=== PATIENT | male | born 1945 | race Caucasian/White ===

== ENCOUNTER 2020-07-17 10:40 | Inpatient (IN) | payer OTHER, BC ==
[2020-07-17] MEDS ORDERED: ACETAMINOPHEN 1000 MG/100 ML VIAL (NON FORMULARY) IVPB ONE ×2 (11:24→22:37)
[2020-07-17] MEDS ORDERED: LACTATED RINGERS SOLUTION 1000 ML INFUS.BAG IV ONE (11:24)
[2020-07-17] MEDS ORDERED: FAMOTIDINE 20 MG/50 ML IVPB 20 MG/50 ML MG IVPB ONE ×2 (11:29→11:52)
[2020-07-17] MEDS ORDERED: morphine CARPU-JECT 2 MG/1 ML DISP.SYRIN IVPUSH ONE (11:29)
[2020-07-17] MEDS ORDERED: ONDANSETRON 4 MG/2 ML VIAL IVPB ONE (11:29)
[2020-07-17] MEDS ORDERED: MORPHINE SULFATE 2 MG/ML VIAL ONE (11:51)
--- OUTSIDE RECORDS SUMMARY | 2020-07-17 11:53 | XMS ---
:1945 [facility] Support Name Relationship Address Phone RE Unavailable Unavailable Unavailable TONY GALVAN SELF / SAME PATIENT Rudy [facility] [phone] [place] [address] Re-disclosure Warning The records that you are about to access may contain information from federally- assisted alcohol or drug abuse programs. If such information is present, then the following federally mandated warning applies: This information has been disclosed to you from records protected by federal confidentiality rules (42 CFR part 2). The federal rules prohibit you from making any further disclosure of this information unless further disclosure is expressly permitted by the written consent of the person to whom it pertains or as otherwise permitted by 42 CFR part 2. A general authorization for the release of medical or other information is NOT sufficient for this purpose. The Federal rules restrict any use of the information to criminally investigate or prosecute any alcohol or drug abuse patient.The records that you are about to access may contain highly sensitive health information, the redisclosure of which is protected by Article 27-F of the [facility] Public Health law. If you continue you may haveaccess to information: Regarding HIV / AIDS; Provided by facilities licensed or operated by the [facility] Office of Mental Health; or Provided by the [facility] Office for People With Developmental Disabilities. If such information is present, then the following [facility] mandated warning applies: This information has been disclosed to you from confidential records which are protected by state law. State law prohibits you from making any further disclosure of this information without the specific written consent of the person to whom it pertains, or as otherwise permitted by law. Any unauthorized further disclosure in violation of state law may result in a fine or correction sentence or both. A general authorization for the release of medical or other information is NOT sufficient authorization for further disclosure. Insurance Providers Payer name Policy type Policy ID Covered Covered green party's Policy P flaquita / Coverage green party ID relationship to Ceja Inf ormation type ceja SELF PAY SP INSURANCE Results ID Date Data Source [id number] 07/13/2020 12:00:00 AM EDT [place] Name Value Range Interpretation Code Description Data Enedina rce(s) Supporting Document(s ) 2019-nCoV [facility] RNA XXX SAMMY+probe- Imp This lab was ordered by ERICK LEDESMA [id number] and reported by [employer] Procedure
[2020-07-17 11:57] LABS: BASO % 0.4 % (0-2.0); EOS % 0.4 % (0-4.5); HEMATOCRIT 47.6 % (35.4-49); HEMOGLOBIN 16.7 GM/dL (11.7-16.9); LYMPH % 11.7 % (8-40); MCH 31.9 pg (25.7-33.7); MCHC 35.1 g/dl (32.0-35.9); MEAN CELL VOLUME 90.7 fl (80-96); MEAN PLT VOLUME 9.2 fl (7.5-11.1); MONO % 4.7 % (3.8-10.2); NEUT % 82.8 % (42.8-82.8); PLATELET COUNT 128 K/MM3 (134-434); RBC 5.24 M/mm3 (4.00-5.60); RDW 14.5 % (11.9-15.9); WHITE BLOOD COUNT 8.2 K/mm3 (4.0-10.0)
--- NOTE | 2020-07-17 12:01 | PDOC ---
History of Present Illness - General Chief Complaint: Pain, Acute Stated Complaint: ABD PAIN Time Seen by Provider: 07/17/20 12:01 History Source: Patient Exam Limitations: No Limitations - History of Present Illness Initial Comments: 07/17/20 12:25 74 y.o. M PMHx HLD, GERD, BPH presenting due to abdominal pain w/ a R sided inguinal hernia. Patient states he has had the hernia for years although it has typically resolved on its own. Pt states he was golfing yesterday when he felt it protruding more than usual. He is currently in diffuse pain. Pt. states his last bowel movement was 2 days ago with last episode of voiding this morning no blood or discoloration. Pt states he currently has the inability to void and had one episode of emesis this morning. Pt denies headache, chills, fevers, diarrhea, chest pain or SOB. PCP: Dr. Sosa PMHx: HLD, GERD, BPH Meds: In Chart Allergies: NKA 07/17/20 12:38 Is this a multiple visit Asthma Patient?: No Timing/Duration: 24 hours Severity: moderate Past History - Medical History Allergies/Adverse Reactions: Allergies Allergy/AdvReac Type Severity Reaction Status Date / Time No Known Allergies Allergy Verified 07/17/20 10:57 Home Medications: Ambulatory Orders Doxazosin Mesylate 07/18/20 Dutasteride 07/18/20 Pepcid 07/18/20 Vitamin B12 07/18/20 Vitamin D - 07/18/20 COPD: No Other medical history: Right inguinal hernia - Immunization History Immunization Up to Date: Yes - Psycho-Social/Smoking History Smoking History: Never smoked Review of Systems - Review of Systems Able to Perform ROS?: Yes Is the patient limited Sierra Leonean proficient: No Constitutional: No: Chills, Fever HEENTM: No: Blurred Vision, Double Vision Respiratory: No: Cough, Shortness of Breath Cardiac (ROS): No: Chest Pain, Lightheadedness ABD/GI: Yes: Vomiting. No: Constipated, Diarrhea, Nausea : Yes: Other (inability to void). No: Burning, Dysuria Musculoskeletal: No: Muscle Pain, Muscle Weakness Integumentary: No: Bruising, Rash, Sweating Neurological: No: Headache, Numbness, Dizziness Hematologic/Lymphatic: No: Easy Bleeding, Easy Bruising *Physical Exam - Vital Signs Last Vital Signs Temp Pulse Resp BP Pulse Ox 98.1 F 56 L 18 137/66 100 07/17/20 10:57 07/17/20 10:57 07/17/20 10:57 07/17/20 10:57 07/17/20 10:57 - Physical Exam General Appearance: Yes: Nourished, Appropriately Dressed. No: Apparent Distress Respiratory/Chest: positive: Lungs Clear, Normal Breath Sounds. negative: Chest Tender, Respiratory Distress, Accessory Muscle Use, Crackles, Rales, Stridor, Wheezing Cardiovascular: positive: Regular Rhythm, Regular Rate. negative: Edema, JVD, Murmur Gastrointestinal/Abdominal: positive: Normal Bowel Sounds, Tender (diffuse), Flat, Soft, Protuberent, Distended, Tenderness, Hernia (R side inguinal, non reducible, mesures ~5cm in diameter, overlying skin non erythematous, hard and tender pn palpation). negative: Guarding, Rebound Musculoskeletal: positive: Normal Inspection. negative: CVA Tenderness Extremity: positive: Normal Inspection. negative: Tender, Coldness, Pedal Edema, Swelling, Calf Tenderness Integumentary: positive: Normal Color, Dry, Warm. negative: Rash, Swelling Neurologic: positive: Fully Oriented, Alert, Normal Mood/Affect, Normal Response ED Treatment Course - LABORATORY CBC & Chemistry Diagram: 07/18/20 06:30 07/18/20 06:30 - ADDITIONAL ORDERS Additional order review: 07/17/20 11:45 RBC 5.24 MCV 90.7 MCHC 35.1 RDW 14.5 MPV 9.2 Neutrophils % 82.8 Lymphocytes % 11.7 Monocytes % 4.7 Eosinophils % 0.4 Basophils % 0.4 Medical Decision Making - Medical Decision Making 07/17/20 12:39 74 y.o. M PMHx HLD, GERD, BPH presenting due to abdominal pain w/ a R sided inguinal hernia. DDx: Inguinal hernia ( Reducible vs. incarcerated vs. strangulated) Labs: WBC 8.2, H&H WNL, Na 139, K 4.0, Lactic acid 2.2, T bili 1.7 CT: large left renal cyst, splenomegaly, R inguinal hernia containing small bowel loop and fluid, incarceration of this loop is suspected EKG: NSR, QTc 458ms, rate 60 Dispo: admit 07/17/20 15:43 07/18/20 12:07 Discharge - Discharge Information Problems reviewed: Yes Clinical Impression/Diagnosis: Incarcerated right inguinal hernia, Renal cyst Condition: Stable - Admission Yes - Follow up/Referral - Patient Discharge Instructions - Post Discharge Activity
--- NOTE | 2020-07-17 12:01 | PDOC ---
Attending Attestation - Resident Resident Name: Roland Saldivar - ED Attending Attestation I have performed the following: I have examined & evaluated the patient, The case was reviewed & discussed with the resident, I agree w/resident's findings & plan, Exceptions are as noted - HPI HPI: 07/17/20 12:00 74y M presents with abd pain since this morning after showering. The patient woke up fine, and developed a RLQ pain/swelling in his R groion that he noticed after his shower (approx 6-7am). Endorses nbnb n/v. Denie any fever/chlls. Pt also endorse mid epgiastric burning cw his GERD. has a hx of hernia, but has never posed a problem and has never been incarcerated before. endorses difficulty urinating this morning. 07/17/20 12:06 - Physicial Exam PE: 07/17/20 12:05 exam: general: no acute distress, non toxic abd: mild epigastric tendnere,ss no rebound/guarding, +R inguinal hernia that is firm, no ertyhema/induration, moderate tenderness on palpation. - Medical Decision Making 07/17/20 12:06 suspect incarcerated hernia unable to reduce will obtain labs will dw surgery, ct abd if unable to be reducied 07/17/20 16:01 pt evaluated by surgery plan for OR on CT pt also noted to have a large renal cyst Heart Score/ECG Review - ECG Impressions Comment:: 07/17/20 12:15 Twelve-lead EKG was performed and reviewed by me. There is normal sinus rhythm with a normal rate. Rate of 60 Right bundle branch block, left anterior fascicular block Discharge - Discharge Information Problems reviewed: Yes Clinical Impression/Diagnosis: Incarcerated right inguinal hernia, Renal cyst Condition: Improved Disposition: HOME - Follow up/Referral - Patient Discharge Instructions - Post Discharge Activity
[2020-07-17 12:04] LABS: INR 1.01 (0.83-1.09); PROTHROMBIN TIME (PATIENT) 12.2 SEC (9.7-13.0)
[2020-07-17 12:31] LABS: ALBUMIN 4.4 g/dl (3.4-5.0); BILIRUBIN,TOTAL 1.7 mg/dL (0.2-1); BLOOD UREA NITROGEN 27.7 mg/dL (7-18); CALCIUM 9.5 mg/dL (8.5-10.1); CREATININE 1.5 mg/dL (0.55-1.3); POTASSIUM 5.3 mmol/L (3.5-5.1); TOT PROT 7.5 g/dl (6.4-8.2)
--- NOTE | 2020-07-17 12:49 | CONSULT ---
<Joe Pritchard P - Last Filed: 07/17/20 12:53> - Consultation REQUESTING PROVIDER: General Surgery - Ritesh Machuca CONSULT REQUEST: We have been asked to surgically evaluate this patient for right groin pain PCP: Dr. Sosa HPI: Called to arelis 74 yo male with PMHx significant for chronic right inguinal hernia. Presents to [facility] ED w/ c/o acute onset right groin pain which started yesterday after playing golf. Patient states his hernia has never been surgically repaired. Usually able to reduce it manually. Admits to nausea/vomit x1 (nbnb) this morning as well as extreme groin pain. Inability to urinate. Last meal was dinner last night. Deneis fever, chills, hematuria PMHx: HLD, GERD, BPH. HTN. Right Inguinal Hernia PSHx: Denies. Allergies: NKDA ROS: 12 Systems reviewed and considered negative except for what's contained in the HPI. PE: GENERAL: Awake, alert, and fully oriented, in no acute distress. HEAD: Normal with no signs of trauma. EYES: PERRL, sclera anicteric, conjunctiva clear. NECK: Normal ROM, supple without lymphadenopathy, JVD, or masses. LUNGS: Unlabored respirations on room air. HEART: RRR ABD: Soft, nontender, not distended, normoactive bowel sounds, Right inguinal region with obvious hernia (not reducible). No bowel sounds auscultated over bulge. TTP ++, No erythema. MUSCULOSKELETAL: No CVA tenderness. UE: 2+ pulses, warm, well-perfused. No cyanosis. Cap refill <2 seconds. No peripheral edema. LE: 2+ pulses, warm, well-perfused. No calf tenderness. No peripheral edema. NEUROLOGICAL: Normal speech, gait not observed. PSYCH: Cooperative. Good eye contact. Appropriate mood and affect. Last Vital Signs Temp Pulse Resp BP Pulse Ox 98.1 F 56 L 18 137/66 100 07/17/20 10:57 07/17/20 10:57 07/17/20 10:57 07/17/20 10:57 07/17/20 10:57 CBC, BMP 07/17/20 11:45 07/17/20 11:45 INR, PTT INR 1.01 (0.83-1.09) 07/17/20 11:45 A/P: 74 yo male admitted with incarcerated right inguinal hernia -NPO -OR for right inguinal herniorrhaphy this afternoon -Rapid Covid pending; strict isolation precaution -Type and Screen -Pain management -Cardio for clearance Above plan discussed with Dr. Machuca and agrees. Problem List - Problems (1) Incarcerated right inguinal hernia Code(s): K40.30 - UNIL INGUINAL HERNIA, W OBST, W/O GANGR, NOT SPCF RECUR (2) HTN (hypertension) Code(s): I10 - ESSENTIAL (PRIMARY) HYPERTENSION (3) BPH (benign prostatic hyperplasia) Code(s): N40.0 - BENIGN PROSTATIC HYPERPLASIA WITHOUT LOWER URINRY TRACT SYMP (4) HLD (hyperlipidemia) Code(s): E78.5 - HYPERLIPIDEMIA, UNSPECIFIED (5) GERD (gastroesophageal reflux disease) Code(s): K21.9 - GASTRO-ESOPHAGEAL REFLUX DISEASE WITHOUT ESOPHAGITIS Visit type - Case Type Case Type: ED Admission - Emergency Emergency Visit: Yes Care time: The patient presented to the Emergency Department on the above date and was hospitalized for further evaluation of their emergent condition. - New patient This patient is new to me today: Yes Date on this admission: 07/17/20 <Ritesh Machuca - Last Filed: 07/21/20 11:42> - Consultation Attending Surgeon: I personally saw and examined the patient. My examination reveals a patient with an incarcerated right inguinal hernia. I discussed the case with the surgical PA and agree with their findings and plan of care with any exceptions as noted. ~ Ritesh Machuca MD, FACS
[2020-07-17] MEDS ORDERED: SODIUM CHLORIDE 1,000 ML IV SCH ×2 (13:30→19:08)
--- NOTE | 2020-07-17 13:31 | HP ---
CHIEF COMPLAINT: right groin pain PCP: HISTORY OF PRESENT ILLNESS: Patient is a 74 year old male with history of hyperlipidema, benign prostatic hyperplasia, presents with complaint of right groin pain. He endorses playing Golf yesterday without any pain, however this morning he noticed sharp pain in his right groin after taking a shower. The pain progressed and worsened and was associated with one episode of non bloody non bilious vomiting. He denies any trauma to the areaThe pain progressed prompting presentation to Emergency Department. He denies subjective fevers, chills, shortness of breath, chest pain, palpitations, abdominal pain. ER course was notable for: (1) General surgery evaluation (2) (3) Recent Travel: denies PAST MEDICAL HISTORY: hyperlipidema, benign prostatic hyperplasia, PAST SURGICAL HISTORY: tonsilectomy as a child Social History: Retired highway maintenance supervisor. Independent in activities daily living Smoking: Former smoker, quit over 50 years ago Alcohol: Denies Drugs: Denies Allergies No Known Allergies Allergy (Verified 07/17/20 10:57) HOME MEDICATIONS: REVIEW OF SYSTEMS As per [facility] PHYSICAL EXAMINATION Vital Signs - 24 hr 07/17/20 10:57 Temperature 98.1 F Pulse Rate 56 L Respiratory 18 Rate Blood Pressure 137/66 O2 Sat by Pulse 100 Oximetry (%) GENERAL: The patient is awake, alert, and fully oriented, in no acute distress. HEAD: Normocephalic, atraumatic. EYES: PERRL, extraocular movements intact, sclera anicteric, conjunctiva clear. ENT: Oropharynx clear, without erythema or exudates. Moist mucous membranes. NECK: Trachea midline, full range of motion. Supple without lymphadenopathy. LUNGS: Breath sounds equal, clear to auscultation bilaterally. No wheezes, no crackles. No accessory muscle use. HEART: Regular rate and rhythm. S1, S2 without murmur, rub or gallop. ABDOMEN: Soft, nondistended, nontender to light and deep palpation x4 quadrants. No rebound tenderness, no guarding. Normoactive bowel sounds x4 quadrants. No hepatosplenomegaly, no masses appreciated. GENITOURINARY: Right sided inguinal hernia palpated, tense, tender to palpation. Non-reducible. Negative bowel sounds auscultated over hernia. EXTREMITIES: 2+ radial, dorsalis pedis pulses bilaterally. Warm, well-perfused. No lower extremity edema bilaterally. NEUROLOGICAL: Cranial nerves II through XII grossly intact. Normal speech. No gross focal deficits. PSYCH: Normal mood, normal affect upon my encounter. SKIN: Warm, dry. Laboratory Results - last 24 hr 07/17/20 07/17/20 07/17/20 11:45 11:45 11:45 WBC 8.2 RBC 5.24 Hgb 16.7 Hct 47.6 MCV 90.7 MCH 31.9 MCHC 35.1 RDW 14.5 Plt Count 128 L MPV 9.2 Absolute Neuts (auto) 6.8 Neutrophils % 82.8 Lymphocytes % 11.7 Monocytes % 4.7 Eosinophils % 0.4 Basophils % 0.4 Nucleated RBC % 0 PT with INR 12.20 INR 1.01 PTT (Actin FS) 28.0 Sodium 139 Potassium 5.3 H Chloride 106 Carbon Dioxide 27 Anion Gap 6 L BUN 27.7 H Creatinine 1.5 H Est GFR (CKD-EPI)AfAm 52.40 Est GFR (CKD-EPI)NonAf 45.21 Random Glucose 129 H Lactic Acid Calcium 9.5 Total Bilirubin 1.7 H AST 47 H ALT 25 Alkaline Phosphatase 67 Total Protein 7.5 Albumin 4.4 Lipase 27 L 07/17/20 11:45 WBC RBC Hgb Hct MCV MCH MCHC RDW Plt Count MPV Absolute Neuts (auto) Neutrophils % Lymphocytes % Monocytes % Eosinophils % Basophils % Nucleated RBC % PT with INR INR PTT (Actin FS) Sodium Potassium Chloride Carbon Dioxide Anion Gap BUN Creatinine Est GFR (CKD-EPI)AfAm Est GFR (CKD-EPI)NonAf Random Glucose Lactic Acid 2.2 H* Calcium Total Bilirubin AST ALT Alkaline Phosphatase Total Protein Albumin Lipase ASSESSMENT/PLAN: Patient is a 74 year old male with history of hyperlipidema, benign prostatic hyperplasia, presents with complaint of right groin pain. Incarcerated right inguinal hernia -General surgery (Dr. Machuca) appreciated. For OR today -NPO -Cardiology clearance (Dr. Adrian) -IV normal saline at 75mL/ hour ANNY -Suspect pre-renal etiology -Gentle hydration IV normal saline at 100mL/ hour -Renal, bladder ultrasound to evaluate for obstruction -Urine electrolytes to calculate FeNa Unconjugated hyperbilirubinemia -Likely secondary to stress, acute hernia. ?Gilbert syndrome. -Follow CMP, consider right upper quadrant ultrasound if conjugated hyperbilirubinemia/ transaminitis progresses. Benign prostatic hyperplasia -Reinstate home Doxasosin postoperatively Hyperlipidemia -Reinstate home Simvastatin postoperatively. Gastro-esophageal reflux -Pantoprazole 40mg IV daily FEN -IV normal saline at 75mL/ hour -Follow BMP -NPO, pending surgery Prophylaxis -SCDs pending surgery Disposition -Admit to medical surgical floor Family Medical History Family History: Unremarkable Visit type - Medication Review Med list reviewed for High Risk Meds patients 65 and older: Yes - Emergency Visit Emergency Visit: Yes ED Registration Date: 07/17/20 Care time: The patient presented to the Emergency Department on the above date and was hospitalized for further evaluation of their emergent condition. - New Patient This patient is new to me today: Yes Date on this admission: 07/17/20 - Critical Care Critical Care patient: No ATTENDING PHYSICIAN STATEMENT I saw and evaluated the patient. I reviewed the resident's note and discussed the case with the resident. I agree with the resident's findings and plan as documented. SUBJECTIVE: OBJECTIVE: ASSESSMENT AND PLAN:
--- OUTSIDE RECORDS SUMMARY | 2020-07-17 14:09 | XMS ---
:1945 Author Organization [facility] Support Name Relationship Address Phone RE, RETIRED Unavailable Unavailable Unavailable RE Unavailable Unavailable Unavailable TONY GALVAN SELF / SAME PATIENT Rudy HANSON [phone] [place] [address] Re-disclosure Warning The records that you are [...] is protected by Article 27-F of the [facility] Public Health law. If you continue you may haveaccess to information: Regarding HIV / AIDS; Provided by facilities licensed or operated by the [facility] Office of Mental Health; or Provided by the [facility] Office for People With Developmental Disabilities. If such information is present, then the following [facility] mandated warning applies: This information has [...] law may result in a fine or care home sentence or both. A general authorization for the release of medical or other information is NOT sufficient authorization for further disclosure. Insurance Providers Payer name Policy type Policy ID Covered Covered constitution party's Policy P flaquita / Coverage constitution party ID relationship to Wong Inf ormation type wong GHI CBP OUTPT [id number] SP [id number] BC PPO [id number] SP [id number] MEDICARE [id number] SP [id number] SELF PAY SP INSURANCE Results ID Date Data Source [id number] 07/13/2020 12:00:00 AM EDT [place] Name Value Range Interpretation Code Description Data Enedina rce(s) Supporting Document(s ) 2019-nCoV [facility] RNA XXX SAMMY+probe- Imp This lab was ordered by ERICK [employer] 5 [id number] and reported by [employer] Procedure
[2020-07-17 14:31] LABS: BLOOD UREA NITROGEN 25.5 mg/dL (7-18); CALCIUM 8.9 mg/dL (8.5-10.1); CREATININE 1.3 mg/dL (0.55-1.3)
[2020-07-17 14:34] LABS: BILIRUBIN,DIRECT 0.4 mg/dL (0.0-0.2)
[2020-07-17] MEDS ORDERED: morphine CARPU-JECT 4 MG/1 ML DISP.SYRIN IVPUSH ONE (14:54)
[2020-07-17] MEDS ORDERED: morphine SULFATE 4 MG/ML VIAL ONE (14:56)
[2020-07-17] MEDS ORDERED: PROPOFOL 20 ML ONE (16:29)
[2020-07-17] MEDS ORDERED: fentaNYL CITRATE 250 MCG/5 ML VIAL ONE (16:30)
[2020-07-17] MEDS ORDERED: MIDAZOLAM HCL 2 MG/2 ML SINGLE DOSE VIAL ONE (16:30)
[2020-07-17] MEDS ORDERED: LIDOCAINE HCL 1%, 10 MG/ML (20ML VIAL) ONE (16:44)
[2020-07-17] MEDS ORDERED: ceFAZolin SODIUM 1 GM VIAL IVPB ONE (16:50)
[2020-07-17] MEDS ORDERED: LIDOCAINE HCL 1%, 10 MG/ML (20ML VIAL) NR ONE (16:57)
[2020-07-17] MEDS ORDERED: BUPIVACAINE HCL/PF 0.5% (5 MG/ML) 30 ML VIAL IJ ONE (16:57)
[2020-07-17] MEDS ORDERED: NEOSTIGMINE METHYLSULFATE 0.5 MG/ML - 10 ML MDV ONE ×2 (17:02→17:56)
--- NOTE | 2020-07-17 18:25 | OP ---
Operative Note - Note: Operative Date: 07/17/20 Pre-Operative Diagnosis: Incarcerated right inguinal hernia Operation: s/p Open repair right inguinal hernia repair, small bowel resection w/ primary anastamosis Findings: strangulated closed loop of small bowel, not viable Post-Operative Diagnosis: Other (Strangulated small bowel within right inguinal hernia) Surgeon: Ritesh Machuca Supervisor Wet Pour: Joe Pritchard Anesthesiologist/SHEET MET[employer] SHOP FOREMAN: Ady lAdana Anesthesia: General Specimens Removed: Small bowel Estimated Blood Loss (mls): 30 Fluid Volume Replaced (mls): 1,500 Operative Report Dictated: Yes
--- NOTE | 2020-07-17 18:26 | SURG ---
Surgery Senior Materials Scientist Note Senior Materials Scientist: Joe Pritchard PA-C Date of Service: 07/17/20 Diagnosis: Strangulated small bowel within right inguinal hernia Procedure: s/p Open repair strangulated right inguinal hernia repair, SB resection I was present for the entirety of the operative procedure. For further detail, please refer to operative report. Visit type - Case Type Case Type: ED Admission - Emergency Emergency Visit: Yes ED Registration Date: 07/17/20 Care time: The patient presented to the Emergency Department on the above date and was hospitalized for further evaluation of their emergent condition. - New patient This patient is new to me today: Yes Date on this admission: 07/17/20
[2020-07-17] MEDS ORDERED: ONDANSETRON 4 MG/2 ML VIAL ONE (19:13)
[2020-07-17] MEDS ORDERED: ACETAMINOPHEN INJECTION 100 ML IVPB ONE (19:33)
[2020-07-17] MEDS: ACETAMINOPHEN 1000 MG/100 ML VIAL (NON FORMULARY) IVPB ONE ×2 (19:40→20:32)
[2020-07-17] MEDS: LACTATED RINGERS SOLUTION 1,000 ML IV SCH (20:40)
[2020-07-17] MEDS: MORPHINE SULFATE 2 MG/ML VIAL IVPUSH PRN (20:41)
[2020-07-17] MEDS ORDERED: BENZOCAINE/MENTH/CETYLPYRD CL 1 EACH LOZENGE MM ONE (21:54)
[2020-07-17] MEDS ORDERED: PT OWN MED DRAWER 7, Y5N ONE (22:40)
[2020-07-17 23:32] VITALS: BMI 24.2
[2020-07-18 01:49] LABS: URINE APPEARANCE CLEAR; URINE BILIRUBIN NEGATIVE (NEGATIVE); URINE COLOR YELLOW; URINE GLUCOSE (UA) NEGATIVE (NEGATIVE); URINE KETONE 2+ (NEGATIVE); URINE LEUK ESTERASE NEGATIVE (NEGATIVE); URINE NITRITE NEGATIVE (NEGATIVE); URINE PROTEIN NEGATIVE (NEGATIVE)
[2020-07-18] MEDS: MORPHINE SULFATE 2 MG/ML VIAL IVPUSH PRN ×4 (02:39→22:35)
[2020-07-18] MEDS: LACTATED RINGERS SOLUTION 1,000 ML IV SCH (04:19)
[2020-07-18 07:44] LABS: HEMOGLOBIN 14.6 GM/dL (11.7-16.9); MCH 31.8 pg (25.7-33.7); MCHC 34.8 g/dl (32.0-35.9); MEAN CELL VOLUME 91.3 fl (80-96); MEAN PLT VOLUME 9.6 fl (7.5-11.1); PLATELET COUNT 106 K/MM3 (134-434); RDW 14.4 % (11.9-15.9); WHITE BLOOD COUNT 5.9 K/mm3 (4.0-10.0)
[2020-07-18 08:06] LABS: POTASSIUM 4.1 mmol/L (3.5-5.1)
[2020-07-18 08:16] LABS: ALBUMIN 3.3 g/dl (3.4-5.0); BILIRUBIN,TOTAL 1.9 mg/dL (0.2-1); BLOOD UREA NITROGEN 25.6 mg/dL (7-18); CALCIUM 8.3 mg/dL (8.5-10.1); CREATININE 1.4 mg/dL (0.55-1.3); PHOSPHOROUS 3.9 mg/dL (2.5-4.9); TOT PROT 5.9 g/dl (6.4-8.2)
[2020-07-18] MEDS: PANTOPRAZOLE SODIUM 40 MG VIAL IVPUSH SCH (09:46)
--- NOTE | 2020-07-18 10:11 | PN ---
Progress Note (short form) - Note Progress Note: GENERAL SURGERY POD #1 s/p s/p Open repair right inguinal hernia repair, small bowel resection w/ primary anastamosis Alert. OOB and ambulating (limited). C/o incisional tenderness, however, feeling much better compared to when he was in the ER. Currently NPO. Denies n/v/f/c, CP, palpitations, SOB or HALL. Last Vital Signs Temp Pulse Resp BP Pulse Ox 99.5 F 67 20 114/63 95 07/18/20 08:30 07/18/20 08:30 07/18/20 08:30 07/18/20 08:30 07/18/20 08:30 CBC, BMP 07/18/20 06:30 07/18/20 06:30 VERO: nad ABD: Right inguinal groin incision c/d/i : no scrotal swelling LE: soft. supple. nt Problem List - Problems (1) Incarcerated right inguinal hernia Assessment/Plan: POD #1 - NPO except PO meds; await bowel function to resume - Ok to restart ALL of his home meds - Ice pack to Right groin (20 mins on / 20 mins off) PRN - Incnetive spirometer - Pain management - OOB and ambulate - Bladder scan if unable to void - Above plan discussed with Dr. Machuca and agrees. Code(s): K40.30 - UNIL INGUINAL HERNIA, W OBST, W/O GANGR, NOT SPCF RECUR (2) HTN (hypertension) Code(s): I10 - ESSENTIAL (PRIMARY) HYPERTENSION (3) BPH (benign prostatic hyperplasia) Code(s): N40.0 - BENIGN PROSTATIC HYPERPLASIA WITHOUT LOWER URINRY TRACT SYMP (4) HLD (hyperlipidemia) Code(s): E78.5 - HYPERLIPIDEMIA, UNSPECIFIED (5) GERD (gastroesophageal reflux disease) Code(s): K21.9 - GASTRO-ESOPHAGEAL REFLUX DISEASE WITHOUT ESOPHAGITIS
--- NOTE | 2020-07-18 11:07 | CON.CARD ---
Consult Consult Specialty:: Cardiology Referred by:: JEREMY Castillo Reason for Consultation:: Cardiovascular evaluation with abnormal ecg - History of Present Illness Chief Complaint: Right groin pain History of Present Illness: 74 yo male h/o HLD, GERD, BPH. HTN presented with incarcerated right inguinal hernia POD#1 open repair right inguinal hernia repair, small bowel resection w/ primary anastamosis now complaints of incisional discomfort. He denies chest pain, dyspnea, palpitations, near or true syncope, orthopnea, PND, LE edema or change in exercise capacity. - History Source History Provided By: Patient Limitations to Obtaining History: No Limitations - Smoking History Smoking history: Former smoker Have you smoked in the past 12 months: No If you are a former smoker, when did you quit?: 52 years ago Home Medications - Allergies Allergies/Adverse Reactions: Allergies Allergy/AdvReac Type Severity Reaction Status Date / Time No Known Allergies Allergy Verified 07/17/20 10:57 - Home Medications Home Medications: Ambulatory Orders Doxazosin Mesylate 07/18/20 Dutasteride 07/18/20 Pepcid 07/18/20 Vitamin B12 07/18/20 Vitamin D - 07/18/20 Review of Systems - Review of Systems Gastrointestinal: reports: Abdominal Pain Vital Signs: Vital Signs Temperature 99.5 F 07/18/20 08:30 Pulse Rate 67 07/18/20 08:30 Respiratory Rate 20 07/18/20 08:30 Blood Pressure 114/63 07/18/20 08:30 O2 Sat by Pulse Oximetry (%) 95 07/18/20 08:30 Constitutional: Yes: No Distress, Calm Neck: Yes: Supple Respiratory: Yes: Regular, CTA Bilaterally Gastrointestinal: Yes: Soft, Hypoactive Bowel Sounds, Other (Post-op) Cardiovascular: Yes: Regular Rate and Rhythm JVD: No Carotid Bruit: No Heart Sounds: Yes: S1, S2 Edema: No - Other Data Labs, Other Data: CBC, BMP 07/18/20 06:30 07/18/20 06:30 INR, PTT INR 1.01 (0.83-1.09) 07/17/20 11:45 NSR @ 60 RBBB, LAFB Imaging - Results Cat Scan: Report Reviewed (07/17/2020 Right inguinal hernia with incarcerated bowel) Problem List - Problems (1) S/P inguinal hernia repair Code(s): Z98.890 - OTHER SPECIFIED POSTPROCEDURAL STATES; Z87.19 - PERSONAL HISTORY OF OTHER DISEASES OF THE DIGESTIVE SYSTEM (2) BPH (benign prostatic hyperplasia) Code(s): N40.0 - BENIGN PROSTATIC HYPERPLASIA WITHOUT LOWER URINRY TRACT SYMP (3) GERD (gastroesophageal reflux disease) Code(s): K21.9 - GASTRO-ESOPHAGEAL REFLUX DISEASE WITHOUT ESOPHAGITIS (4) HLD (hyperlipidemia) Code(s): E78.5 - HYPERLIPIDEMIA, UNSPECIFIED (5) HTN (hypertension) Code(s): I10 - ESSENTIAL (PRIMARY) HYPERTENSION Qualifiers: Hypertension type: essential hypertension Qualified Code(s): I10 - Ess ential (primary) hypertension (6) Incarcerated right inguinal hernia Code(s): K40.30 - UNIL INGUINAL HERNIA, W OBST, W/O GANGR, NOT SPCF RECUR Assessment/Plan 1. POD#1 Open repair right inguinal hernia repair, small bowel resection w/ primary anastamosis, stable CV damon 2. ANNY 3. BPH 4. Hyperlipidemia 5. GERD P:1. Resume home meds once able to tolerate oral intake, DVT prophylaxis 2. Awaiting return of bowel function, judicious hydration with monitor renal recovery 3. Stable CV-damon, has f/u with outside hassock maker 4. Thank you for consultative opportunity
--- NOTE | 2020-07-18 12:31 | PN ---
Physical Exam: SUBJECTIVE: Patient seen and examined at the bedside. He wants to eat and drink regular food and assured him that surgery team will start diet when he is medically ready. He is also anxious about his home medications, which I assured him that I will start. He was able to get out of bed with some assistance, gait steady. OBJECTIVE: Patient is a 74 year old male with history of hyperlipidema, benign prostatic hyperplasia, who presented to the ED on 07/17/2020 with complaints of right groin pain. An abdominal ct scan showed right inguinal hernia containing a small bowel loop and fluid incarceration of this loop is suspected. He is s/p POD #1 Open repair right inguinal hernia repair, small bowel resection w/ primary anastamosis Period Temp Pulse Resp BP Sys/Atylor Pulse Ox Last 24 Hr 97.3 F-99.5 F 59-101 14-20 109-153/54-97 95-100 GENERAL: The patient is awake, alert, and fully oriented, in no acute distress. anxious HEAD: Normal with no signs of trauma. EYES: PERRL, extraocular movements intact, sclera anicteric, conjunctiva clear. No ptosis. ENT: Ears normal, nares patent, oropharynx clear without exudates, moist mucous membranes. NECK: Trachea midline, full range of motion, supple. LUNGS: Breath sounds equal, clear to auscultation bilaterally, no wheezes HEART: Regular rate and rhythm ABDOMEN: Soft, nontender, nondistended, normoactive bowel sounds - right groin dressing intact EXTREMITIES: no edema. NEUROLOGICAL: Normal speech, gait steady PSYCH:anxious Laboratory Results - last 24 hr 07/17/20 07/17/20 07/17/20 11:45 11:45 12:35 WBC RBC Hgb Hct MCV MCH MCHC RDW Plt Count MPV Sodium 139 Potassium 5.3 H Chloride 106 Carbon Dioxide 27 Anion Gap 6 L BUN 27.7 H Creatinine 1.5 H Est GFR (CKD-EPI)AfAm 52.40 Est GFR (CKD-EPI)NonAf 45.21 Random Glucose 129 H Lactic Acid 2.2 H* Calcium 9.5 Phosphorus Magnesium Total Bilirubin 1.7 H Direct Bilirubin AST 47 H ALT 25 Alkaline Phosphatase 67 Total Protein 7.5 Albumin 4.4 Lipase 27 L Urine Color Urine Appearance Urine pH Ur Specific [place] Urine Protein Urine Glucose (UA) Urine Ketones Urine Blood Urine Nitrite Urine Bilirubin Urine Urobilinogen Ur Leukocyte Esterase Ur Random Creatinine Ur Random Sodium Ur Random Potassium Ur Random Chloride SARS-CoV-2 (PCR) Negative Blood Type Antibody Screen 07/17/20 07/17/20 07/17/20 13:00 13:45 20:50 WBC RBC Hgb Hct MCV MCH MCHC RDW Plt Count MPV Sodium 144 Potassium 4.0 Chloride 111 H Carbon Dioxide 25 Anion Gap 8 BUN 25.5 H Creatinine 1.3 Est GFR (CKD-EPI)AfAm 62.30 Est GFR (CKD-EPI)NonAf 53.75 Random Glucose 95 Lactic Acid 1.1 Calcium 8.9 Phosphorus Magnesium Total Bilirubin Direct Bilirubin 0.4 H AST ALT Alkaline Phosphatase Total Protein Albumin Lipase Urine Color Urine Appearance Urine pH Ur Specific [place] Urine Protein Urine Glucose (UA) Urine Ketones Urine Blood Urine Nitrite Urine Bilirubin Urine Urobilinogen Ur Leukocyte Esterase Ur Random Creatinine Ur Random Sodium Ur Random Potassium Ur Random Chloride SARS-CoV-2 (PCR) Blood Type O POSITIVE Antibody Screen Negative 07/18/20 07/18/20 07/18/20 01:20 01:20 06:30 WBC 5.9 RBC 4.60 Hgb 14.6 Hct 42.0 MCV 91.3 MCH 31.8 MCHC 34.8 RDW 14.4 Plt Count 106 L MPV 9.6 Sodium Potassium Chloride Carbon Dioxide Anion Gap BUN Creatinine Est GFR (CKD-EPI)AfAm Est GFR (CKD-EPI)NonAf Random Glucose Lactic Acid Calcium Phosphorus Magnesium Total Bilirubin Direct Bilirubin AST ALT Alkaline Phosphatase Total Protein Albumin Lipase Urine Color Yellow Urine Appearance Clear Urine pH 5.0 Ur Specific [place] 1.039 H Urine Protein Negative Urine Glucose (UA) Negative Urine Ketones 2+ H Urine Blood Negative Urine Nitrite Negative Urine Bilirubin Negative Urine Urobilinogen 1.0 Ur Leukocyte Esterase Negative Ur Random Creatinine 266.0 H Ur Random Sodium 48 Ur Random Potassium 100.0 Ur Random Chloride 128 SARS-CoV-2 (PCR) Blood Type Antibody Screen 07/18/20 06:30 WBC RBC Hgb Hct MCV MCH MCHC RDW Plt Count MPV Sodium 139 Potassium 4.1 Chloride 108 H Carbon Dioxide 24 Anion Gap 8 BUN 25.6 H Creatinine 1.4 H Est GFR (CKD-EPI)AfAm 56.96 Est GFR (CKD-EPI)NonAf 49.14 Random Glucose 96 Lactic Acid Calcium 8.3 L Phosphorus 3.9 Magnesium 2.0 Total Bilirubin 1.9 H Direct Bilirubin AST 14 L ALT 17 Alkaline Phosphatase 56 Total Protein 5.9 L Albumin 3.3 L Lipase Urine Color Urine Appearance Urine pH Ur Specific [place] Urine Protein Urine Glucose (UA) Urine Ketones Urine Blood Urine Nitrite Urine Bilirubin Urine Urobilinogen Ur Leukocyte Esterase Ur Random Creatinine Ur Random Sodium Ur Random Potassium Ur Random Chloride SARS-CoV-2 (PCR) Blood Type Antibody Screen Active Medications Generic Name Dose Route Start Last Admin Trade Name Freq PRN Reason Stop Dose Admin Fentanyl 50 mcg 07/17/20 18:37 07/17/20 19:40 Sublimaze Injection - IVPUSH 50 mcg [id number] PRN Administration PAIN-PACU ORDER X 4 DOSES ONLY Morphine Sulfate 2 mg 07/17/20 18:29 07/18/20 10:24 Morphine Sulfate IVPUSH 2 mg Q6H PRN Administration PAIN LEVEL 7 - 10 Pantoprazole Sodium 40 mg 07/18/20 10:00 07/18/20 09:46 Protonix Iv IVPUSH 40 mg DAILY PRISCILLA Administration ASSESSMENT/PLAN: Problem List - Problems (1) Incarcerated right inguinal hernia Assessment/Plan: Patient is s/p POD #1 Open repair right inguinal hernia repair, small bowel resection w/ primary anastamosis monitor wound pain management early ambulation monitor intake and output incentive spirometer diet per surgery Code(s): K40.30 - UNIL INGUINAL HERNIA, W OBST, W/O GANGR, NOT SPCF RECUR (2) BPH (benign prostatic hyperplasia) Assessment/Plan: continue home medications and monitor intake and output. Code(s): N40.0 - BENIGN PROSTATIC HYPERPLASIA WITHOUT LOWER URINRY TRACT SYMP (3) GERD (gastroesophageal reflux disease) Assessment/Plan: On PPI Code(s): K21.9 - GASTRO-ESOPHAGEAL REFLUX DISEASE WITHOUT ESOPHAGITIS (4) HLD (hyperlipidemia) Assessment/Plan: outpatient follow up. on no home medications Code(s): E78.5 - HYPERLIPIDEMIA, UNSPECIFIED (5) HTN (hypertension) Assessment/Plan: on Cardura BP stable Code(s): I10 - ESSENTIAL (PRIMARY) HYPERTENSION Qualifiers: Hypertension type: essential hypertension Qualified Code(s): I10 - Essential (primary) hypertension (6) DVT prophylaxis Assessment/Plan: SCDs Code(s): Z29.9 - ENCOUNTER FOR PROPHYLACTIC MEASURES, UNSPECIFIED Visit type - Emergency Visit Emergency Visit: Yes ED Registration Date: 07/17/20 Care time: The patient presented to the Emergency Department on the above date a nd was hospitalized for further evaluation of their emergent condition. - New Patient This patient is new to me today: Yes Date on this admission: 07/18/20 - Critical Care Critical Care patient: No - Discharge Referral Referred to [facility] No - Medication Review Med list reviewed for High Risk Meds patients 65 and older: Yes
[2020-07-18] MEDS ORDERED: PT OWN MED DRAWER 7, Y5N ONE ×4 (13:26→21:12)
[2020-07-18] MEDS: FAMOTIDINE 10 MG TABLET PO SCH (13:29)
[2020-07-18] MEDS: DUTASTERIDE 0.5 MG CAP (FP) PO SCH (13:29)
[2020-07-18] MEDS: CYANOCOBALAMIN 1,000 MCG TABLET (FP) PO SCH (13:30)
[2020-07-18] MEDS: CHOLECALCIFEROL (VIT D3) 1,000 UNIT (25 MCG) TABLET PO SCH (13:30)
--- NOTE | 2020-07-18 13:53 | EKG ---
Test Reason : Blood Pressure : / mmHG Vent. Rate : 060 BPM Atrial Rate : 060 BPM P-R Int : 138 ms QRS Dur : 116 ms QT Int : 458 ms P-R-T Axes : 072 -62 003 degrees QTc Int : 458 ms NORMAL SINUS RHYTHM RIGHT BUNDLE BRANCH BLOCK LEFT ANTERIOR FASCICULAR BLOCK BIFASCICULAR BLOCK ABNORMAL ECG NO PREVIOUS ECGS AVAILABLE Confirmed by CARO OSPINA MD ([id number]) on 07/18/2020 1:53:01 PM Referred By: Confirmed By:CARO OSPINA MD
[2020-07-18] MEDS: DOXAZOSIN MESYLATE 2 MG TABLET PO SCH ×2 (14:37→22:31)
[2020-07-18] MEDS: BENZOCAINE/MENTH/CETYLPYRD CL 1 EACH LOZENGE MM PRN (15:53)
[2020-07-19] MEDS: BENZOCAINE/MENTH/CETYLPYRD CL 1 EACH LOZENGE MM PRN (08:19)
[2020-07-19 08:59] LABS: BASO % 0.5 % (0-2.0); EOS % 0.5 % (0-4.5); HEMATOCRIT 39.7 % (35.4-49); HEMOGLOBIN 14.2 GM/dL (11.7-16.9); MCH 32.7 pg (25.7-33.7); MCHC 35.6 g/dl (32.0-35.9); MEAN CELL VOLUME 91.8 fl (80-96); MEAN PLT VOLUME 9.4 fl (7.5-11.1); PLATELET COUNT 78 K/MM3 (134-434); RBC 4.33 M/mm3 (4.00-5.60); RDW 14.6 % (11.9-15.9); WHITE BLOOD COUNT 5.8 K/mm3 (4.0-10.0)
[2020-07-19 09:10] LABS: POTASSIUM 3.8 mmol/L (3.5-5.1)
[2020-07-19] MEDS ORDERED: PT OWN MED DRAWER 7, Y5N ONE ×2 (09:10→21:12)
[2020-07-19] MEDS: DUTASTERIDE 0.5 MG CAP (FP) PO SCH (09:13)
[2020-07-19] MEDS: DOXAZOSIN MESYLATE 2 MG TABLET PO SCH ×2 (09:14→21:35)
[2020-07-19] MEDS: CHOLECALCIFEROL (VIT D3) 1,000 UNIT (25 MCG) TABLET PO SCH (09:14)
[2020-07-19] MEDS: PANTOPRAZOLE SODIUM 40 MG VIAL IVPUSH SCH ×2 (09:14→09:23)
[2020-07-19] MEDS: FAMOTIDINE 10 MG TABLET PO SCH (09:14)
[2020-07-19] MEDS: CYANOCOBALAMIN 1,000 MCG TABLET (FP) PO SCH (09:14)
[2020-07-19 09:15] LABS: CALCIUM 8.2 mg/dL (8.5-10.1)
[2020-07-19 09:16] LABS: ALBUMIN 3.1 g/dl (3.4-5.0); BLOOD UREA NITROGEN 30.8 mg/dL (7-18); MAGNESIUM 2.2 mg/dL (1.8-2.4)
[2020-07-19 09:21] LABS: TOT PROT 5.8 g/dl (6.4-8.2)
--- NOTE | 2020-07-19 09:31 | PN ---
Progress Note (short form) - Note Progress Note: Attending Surgeon POD # 2 C/O pain; no flatus; no BM; voiding VSS AF ABD: Right inguinal groin incision c/d/i; soft; slightly distended and tympanitic : no scrotal swelling; some ecchymosis LE: soft. supple. nt; no calf tenderness labs noted Problem List - Problems (1) Incarcerated right inguinal hernia Assessment/Plan: POD #2 - NPO except PO meds; await bowel function to resume - Pain management - OOB and ambulate Code(s): K40.30 - UNIL INGUINAL HERNIA, W OBST, W/O GANGR, NOT SPCF RECUR Ritesh Machuca MD FACS
--- NOTE | 2020-07-19 11:31 | PN ---
Physical Exam: SUBJECTIVE: Patient seen and examined, ambulating better, using spirometer. has not passed flatus. OBJECTIVE: Patient is a 74 year old male with history of hyperlipidema, benign prostatic hyperplasia, who presented to the ED on 07/17/2020 with complaints of right groin pain. An abdominal ct scan showed right inguinal hernia containing a small bowel loop and fluid incarceration of this loop is suspected. He is s/p POD #2 Open repair right inguinal hernia repair, small bowel resection w/ primary anastamosis Vital Signs Period Temp Pulse Resp BP Sys/Taylor Pulse Ox Last 24 Hr 98.0 F-99.6 F 69-80 20-20 109-122/59-71 91-95 GENERAL: The patient is awake, alert, and fully oriented, in no acute distress. anxious HEAD: Normal with no signs of trauma. EYES: PERRL, extraocular movements intact, sclera anicteric, conjunctiva clear. No ptosis. ENT: Ears normal, nares patent, oropharynx clear without exudates, moist mucous membranes. NECK: Trachea midline, full range of motion, supple. LUNGS: Breath sounds equal, clear to auscultation bilaterally, no wheezes HEART: Regular rate and rhythm ABDOMEN: Soft, nontender, nondistended, normoactive bowel sounds - right groin shine intact EXTREMITIES: no edema. NEUROLOGICAL: Normal speech, gait steady Laboratory Results - last 24 hr 07/18/20 07/19/20 07/19/20 01:20 07:40 07:40 WBC 5.8 RBC 4.33 Hgb 14.2 Hct 39.7 MCV 91.8 MCH 32.7 MCHC 35.6 RDW 14.6 Plt Count 78 L D MPV 9.4 Absolute Neuts (auto) 4.6 Neutrophils % 80.0 Lymphocytes % 9.0 D Monocytes % 10.0 D Eosinophils % 0.5 Basophils % 0.5 Nucleated RBC % 0 Sodium 140 Potassium 3.8 Chloride 106 Carbon Dioxide 26 Anion Gap 9 BUN 30.8 H Creatinine 2.0 H Est GFR (CKD-EPI)AfAm 37.01 Est GFR (CKD-EPI)NonAf 31.93 Random Glucose 82 Calcium 8.2 L Magnesium 2.2 Total Bilirubin 2.0 H AST 15 ALT 14 Alkaline Phosphatase 54 Total Protein 5.8 L Albumin 3.1 L Ur Random Creatinine 266.0 H Ur Random Sodium 48 Ur Random Potassium 100.0 Ur Random Chloride 128 Active Medications Generic Name Dose Route Start Last Admin Trade Name Freq PRN Reason Stop Dose Admin Acetaminophen 1,000 mg 07/19/20 09:31 Ofirmev Injection - IVPB 07/20/20 09:31 Q6H PRN PAIN LEVEL 6-10 Benzocaine/Menthol 1 each 07/18/20 15:27 07/19/20 08:19 Cepacol Lozenge - MM 1 each PRN PRN Administration SORE THROAT Cholecalciferol 1,000 unit 07/18/20 12:45 07/19/20 09:14 Vitamin D3 - PO 1,000 unit DAILY PRISCILLA Administration Cyanocobalamin 1,000 mcg 07/18/20 12:45 07/19/20 09:14 Vitamin B12 - PO 1,000 mcg DAILY PRISCILLA Administration Doxazosin Mesylate 2 mg 07/18/20 12:45 07/19/20 09:14 Cardura - PO 2 mg BID PRISCILLA Administration Dutasteride 0.5 mg 07/18/20 13:00 07/19/20 09:13 Avodart - PO 0.5 mg DAILY PRISCILLA Administration Famotidine 10 mg 07/18/20 13:00 07/19/20 09:14 Acid Powder And Primer Canning Leader PO 10 mg DAILY PRISCILLA Administration Morphine Sulfate 2 mg 07/17/20 18:29 07/18/20 22:35 Morphine Sulfate IVPUSH 2 mg Q6H PRN Administration PAIN LEVEL 7 - 10 Pantoprazole Sodium 40 mg 07/18/20 10:00 07/19/20 09:23 Protonix Iv IVPUSH Not Given DAILY PRISCILLA ASSESSMENT/PLAN: Problem List - Problems (1) Incarcerated right inguinal hernia Assessment/Plan: Patient is s/p POD #2 Open repair right inguinal hernia repair, small bowel resection w/ primary anastamosis monitor wound pain management early ambulation monitor intake and output incentive spirometer diet per surgery start on clinimax Code(s): K40.30 - UNIL INGUINAL HERNIA, W OBST, W/O GANGR, NOT SPCF RECUR (2) BPH (benign prostatic hyperplasia) Assessment/Plan: continue home medications and monitor intake and output. Code(s): N40.0 - BENIGN PROSTATIC HYPERPLASIA WITHOUT LOWER URINRY TRACT SYMP (3) GERD (gastroesophageal reflux disease) Assessment/Plan: On PPI Code(s): K21.9 - GASTRO-ESOPHAGEAL REFLUX DISEASE WITHOUT ESOPHAGITIS (4) HLD (hyperlipidemia) Assessment/Plan: outpatient follow up. on no home medications Code(s): E78.5 - HYPERLIPIDEMIA, UNSPECIFIED (5) HTN (hypertension) Assessment/Plan: on Cardura BP stable Code(s): I10 - ESSENTIAL (PRIMARY) HYPERTENSION Qualifiers: Hypertension type: essential hypertension Qualified Code(s): I10 - Essential (primary) hypertension (6) DVT prophylaxis Assessment/Plan: SCDs Code(s): Z29.9 - ENCOUNTER FOR PROPHYLACTIC MEASURES, UNSPECIFIED Visit type - Emergency Visit Emergency Visit: Yes ED Registration Date: 07/17/20 Care time: The patient presented to the Emergency Department on the above date and was hospitalized for further evaluation of their emergent condition. - New Patient This patient is new to me today: No - Critical Care Critical Care patient: No - Discharge Referral Referred to [facility] No - Medication Review Med list reviewed for High Risk Meds patients 65 and older: Yes
[2020-07-19] MEDS: AMINO ACIDS 4.25%/D5W 1,000 ML IV SCH (12:42)
[2020-07-19] MEDS: ACETAMINOPHEN 1000 MG/100 ML VIAL (NON FORMULARY) IVPB PRN ×2 (14:06→23:26)
--- NOTE | 2020-07-19 17:42 | PN ---
Progress Note, Physician History of Present Illness: 74 yo male h/o HLD, GERD, BPH. HTN presented with incarcerated right inguinal hernia s/p open repair right inguinal hernia repair, small bowel resection w/ primary anastamosis now complaints of incisional discomfort. He denies chest pain, dyspnea, palpitations, near or true syncope, orthopnea, PND, LE edema or change in exercise capacity. - Current Medication List Current Medications: Active Medications Acetaminophen (Ofirmev Injection -) 1,000 mg IVPB Q6H PRN PRN Reason: PAIN LEVEL 6-10 Stop: 07/20/20 09:31 Last Admin: 07/19/20 14:06 Dose: 1,000 mg Documented by: Benzocaine/Menthol (Cepacol Lozenge -) 1 each MM PRN PRN PRN Reason: SORE THROAT Last Admin: 07/19/20 08:19 Dose: 1 each Documented by: Cholecalciferol (Vitamin D3 -) 1,000 unit PO DAILY [facility] Last Admin: 07/19/20 09:14 Dose: 1,000 unit Documented by: Cyanocobalamin (Vitamin B12 -) 1,000 mcg PO DAILY [facility] Last Admin: 07/19/20 09:14 Dose: 1,000 mcg Documented by: Doxazosin Mesylate (Cardura -) 2 mg PO BID [facility] Last Admin: 07/19/20 09:14 Dose: 2 mg Documented by: Dutasteride (Avodart -) 0.5 mg PO DAILY [facility] Last Admin: 07/19/20 09:13 Dose: 0.5 mg Documented by: Famotidine (Acid [employer] Supervisor) 10 mg PO DAILY [facility] Last Admin: 07/19/20 09:14 Dose: 10 mg Documented by: Amino Acids (Clinimix -) 1,000 mls @ 84 mls/hr IV Q12H [facility] Last Admin: 07/19/20 12:42 Dose: 84 mls/hr Documented by: Morphine Sulfate (Morphine Sulfate) 2 mg IVPUSH Q6H PRN PRN Reason: PAIN LEVEL 7 - 10 Last Admin: 07/18/20 22:35 Dose: 2 mg Documented by: Pantoprazole Sodium (Protonix Iv) 40 mg IVPUSH DAILY [facility] Last Admin: 07/19/20 09:23 Dose: Not Given Documented by: Saliva Substitute (Mouthkote Solution) 1 applic MM TID [facility] - Objective Vital Signs: Vital Signs Temperature 97.7 F 07/19/20 13:46 Pulse Rate 75 07/19/20 13:46 Respiratory Rate 20 07/19/20 13:46 Blood Pressure 123/68 07/19/20 13:46 O2 Sat by Pulse Oximetry (%) 95 07/19/20 13:46 Eyes: Yes: WNL, Conjunctiva Clear, EOM Intact HENT: Yes: WNL, Atraumatic, Normocephalic Neck: Yes: WNL, Supple, Trachea Midline Cardiovascular: Yes: WNL, Regular Rate and Rhythm Respiratory: Yes: WNL, Regular, CTA Bilaterally Gastrointestinal: Yes: WNL, Normal Bowel Sounds Genitourinary: Yes: WNL Musculoskeletal: Yes: WNL Extremities: Yes: WNL Edema: No Integumentary: Yes: WNL Neurological: Yes: WNL, Alert, Oriented ...Motor Strength: WNL Psychiatric: Yes: WNL Labs: CBC, BMP 07/19/20 07:40 07/19/20 07:40 INR, PTT INR 1.01 (0.83-1.09) 07/17/20 11:45 Assessment/Plan Problem List - Problems (1) S/P inguinal hernia repair Code(s): Z98.890 - OTHER SPECIFIED POSTPROCEDURAL STATES; Z87.19 - PERSONAL HISTORY OF OTHER DISEASES OF THE DIGESTIVE SYSTEM (2) BPH (benign prostatic hyperplasia) Code(s): N40.0 - BENIGN PROSTATIC HYPERPLASIA WITHOUT LOWER URINRY TRACT SYMP (3) GERD (gastroesophageal reflux disease) Code(s): K21.9 - GASTRO-ESOPHAGEAL REFLUX DISEASE WITHOUT ESOPHAGITIS (4) HLD (hyperlipidemia) Code(s): E78.5 - HYPERLIPIDEMIA, UNSPECIFIED (5) HTN (hypertension) Code(s): I10 - ESSENTIAL (PRIMARY) HYPERTENSION Qualifiers: Hypertension type: essential hypertension Qualified Code(s): I10 - Essential (primary) hypertension (6) Incarcerated right inguinal hernia Code(s): K40.30 - UNIL INGUINAL HERNIA, W OBST, W/O GANGR, NOT SPCF RECUR Assessment/Plan 1. POD#2 Open repair right inguinal hernia repair, small bowel resection w/ primary anastamosis, stable CV damon 2. ANNY 3. BPH 4. Hyperlipidemia 5. GERD P:1. Resume home meds once able to tolerate oral intake, DVT prophylaxis 2. Awaiting return of bowel function, judicious hydration with monitor renal recovery 3. Stable CV-damon, has f/u with outside resource management planner Coverage for dr. Adrian
[2020-07-19] MEDS: LYTES/YERBA SANTA 60 ML SPRAY MM SCH ×2 (18:24→21:37)
[2020-07-20] MEDS: AMINO ACIDS 4.25%/D5W 1,000 ML IV SCH ×2 (00:27→11:39)
[2020-07-20] MEDS ORDERED: PT OWN MED DRAWER 7, Y5N ONE ×3 (02:05→21:28)
[2020-07-20] MEDS: LYTES/YERBA SANTA 60 ML SPRAY MM SCH ×3 (06:18→23:04)
[2020-07-20] MEDS: MORPHINE SULFATE 2 MG/ML VIAL IVPUSH PRN (07:02)
[2020-07-20] MEDS: PANTOPRAZOLE SODIUM 40 MG VIAL IVPUSH SCH (09:06)
[2020-07-20 09:34] LABS: BASO % 0.2 % (0-2.0); EOS % 0.9 % (0-4.5); HEMOGLOBIN 14.2 GM/dL (11.7-16.9); LYMPH % 4.5 % (8-40); MCH 32.6 pg (25.7-33.7); MCHC 35.5 g/dl (32.0-35.9); MEAN CELL VOLUME 91.9 fl (80-96); MEAN PLT VOLUME 9.4 fl (7.5-11.1); NEUT % 86.4 % (42.8-82.8); PLATELET COUNT 85 K/MM3 (134-434); RBC 4.36 M/mm3 (4.00-5.60); RDW 14.3 % (11.9-15.9); WHITE BLOOD COUNT 7.8 K/mm3 (4.0-10.0)
[2020-07-20 09:37] LABS: POTASSIUM 3.8 mmol/L (3.5-5.1)
[2020-07-20 09:54] LABS: ALBUMIN 2.9 g/dl (3.4-5.0); MAGNESIUM 2.1 mg/dL (1.8-2.4)
[2020-07-20 09:55] LABS: BLOOD UREA NITROGEN 42.8 mg/dL (7-18)
[2020-07-20 09:57] LABS: CREATININE 2.9 mg/dL (0.55-1.3)
[2020-07-20 10:00] LABS: TOT PROT 5.8 g/dl (6.4-8.2)
[2020-07-20 10:01] LABS: BILIRUBIN,TOTAL 1.5 mg/dL (0.2-1)
--- NOTE | 2020-07-20 10:05 | PN ---
Progress Note (short form) - Note Progress Note: Attending Surgeon POD # 3 C/O scrotal pain; he passed flatus; no BM; voiding VSS AF ABD: Right inguinal groin incision c/d/i; soft; non distended and non tympanitic : no scrotal swelling or ttp; some ecchymosis LE: soft. supple. nt; no calf tenderness WBC nl; elevated BUN/Cr IMP: Improving; elevated BUN/Cr most likely due to obstructive uropathy - Problems (1) Strangulated right inguinal hernia - Clear liquid diet - Pain management - OOB and ambulate/scrotal support Ritesh Machuca MD FACS
[2020-07-20] MEDS: CYANOCOBALAMIN 1,000 MCG TABLET (FP) PO SCH (10:10)
[2020-07-20] MEDS: BENZOCAINE/MENTH/CETYLPYRD CL 1 EACH LOZENGE MM PRN ×2 (10:10→20:39)
[2020-07-20] MEDS: DOXAZOSIN MESYLATE 2 MG TABLET PO SCH ×2 (10:11→23:05)
[2020-07-20] MEDS: FAMOTIDINE 10 MG TABLET PO SCH (10:11)
[2020-07-20] MEDS: DUTASTERIDE 0.5 MG CAP (FP) PO SCH (10:11)
[2020-07-20] MEDS: CHOLECALCIFEROL (VIT D3) 1,000 UNIT (25 MCG) TABLET PO SCH (10:11)
--- NOTE | 2020-07-20 12:50 | PN ---
Physical Exam: SUBJECTIVE: Patient seen and examined OBJECTIVE: Patient is a 74 year old male with history of hyperlipidema, benign prostatic hyperplasia, who presented to the ED on 07/17/2020 with complaints of right groin pain. An abdominal ct scan showed right inguinal hernia containing a small bowel loop and fluid incarceration of this loop is suspected. He is s/p POD #2 Open repair right inguinal hernia repair, small bowel resection w/ primary anastamosis. shine c/d/i started on clears by surgery creatinine @ 2.9, patient with retention, straight cath and over 600cc of retention. urology consult and tanner recommended. will consult renal for elevated creatinine stop clinimax kidney/bladder us reviewed: large renal cyst, pt unable to void. scrotum u/s: mild hypervascularity of both testes, small bilateral hydroceles Vital Signs Period Temp Pulse Resp BP Sys/Taylor Pulse Ox Last 24 Hr 97.7 F-99.1 F 75-84 20-20 123-137/68-79 93-95 GENERAL: The patient is awake, alert, and fully oriented, in no acute distress. HEAD: Normal with no signs of trauma. EYES: PERRL, extraocular movements intact, sclera anicteric, conjunctiva clear. No ptosis. ENT: Ears normal, nares patent, oropharynx clear without exudates, moist mucous membranes. NECK: Trachea midline, full range of motion, supple. LUNGS: Breath sounds equal, clear to auscultation bilaterally, no wheezes HEART: Regular rate and rhythm ABDOMEN: Soft, nontender, nondistended, normoactive bowel sounds - right groin shine intact EXTREMITIES: no edema. NEUROLOGICAL: Normal speech, gait steady Laboratory Results - last 24 hr 07/20/20 07/20/20 08:03 08:03 WBC 7.8 RBC 4.36 Hgb 14.2 Hct 40.0 MCV 91.9 MCH 32.6 MCHC 35.5 RDW 14.3 Plt Count 85 L MPV 9.4 Absolute Neuts (auto) 6.7 Neutrophils % 86.4 H Lymphocytes % 4.5 L D Monocytes % 8.0 Eosinophils % 0.9 Basophils % 0.2 Nucleated RBC % 0 Sodium 141 Potassium 3.8 Chloride 109 H Carbon Dioxide 25 Anion Gap 7 L BUN 42.8 H Creatinine 2.9 H Est GFR (CKD-EPI)AfAm 23.62 Est GFR (CKD-EPI)NonAf 20.38 Random Glucose 116 H Calcium 8.0 L Magnesium 2.1 Total Bilirubin 1.5 H AST 17 ALT 13 Alkaline Phosphatase 58 Total Protein 5.8 L Albumin 2.9 L Active Medications Generic Name Dose Route Start Last Admin Trade Name Freq PRN Reason Stop Dose Admin Benzocaine/Menthol 1 each 07/18/20 15:27 07/20/20 10:10 Cepacol Lozenge - MM 1 each PRN PRN Administration SORE THROAT Cholecalciferol 1,000 unit 07/18/20 12:45 07/20/20 10:11 Vitamin D3 - PO 1,000 unit DAILY PRISCILLA Administration Cyanocobalamin 1,000 mcg 07/18/20 12:45 07/20/20 10:10 Vitamin B12 - PO 1,000 mcg DAILY PRISCILLA Administration Doxazosin Mesylate 2 mg 07/18/20 12:45 07/20/20 10:11 Cardura - PO 2 mg BID PRISCILLA Administration Dutasteride 0.5 mg 07/18/20 13:00 07/20/20 10:11 Avodart - PO 0.5 mg DAILY PRISCILLA Administration Famotidine 10 mg 07/18/20 13:00 07/20/20 10:11 Acid Developer Automatic PO 10 mg DAILY PRISCILLA Administration Amino Acids 1,000 mls @ 84 mls/hr 07/19/20 11:45 07/20/20 11:39 Clinimix - IV Not Given Q12H PRISCILLA Morphine Sulfate 2 mg 07/17/20 18:29 07/20/20 07:02 Morphine Sulfate IVPUSH 2 mg Q6H PRN Administration PAIN LEVEL 7 - 10 Pantoprazole Sodium 40 mg 07/18/20 10:00 07/20/20 09:06 Protonix Iv IVPUSH Not Given DAILY PRISCILLA Saliva Substitute 1 applic 07/19/20 15:15 07/20/20 06:18 Mouthkote Solution MM 1 applic TID PRISCILLA Administration ASSESSMENT/PLAN: Problem List - Problems (1) Incarcerated right inguinal hernia Assessment/Plan: Patient is s/p POD #3 Open repair right inguinal hernia repair, small bowel resection w/ primary anastamosis monitor wound pain management early ambulation monitor intake and output incentive spirometer on clears, stop clinimax Code(s): K40.30 - UNIL INGUINAL HERNIA, W OBST, W/O GANGR, NOT SPCF RECUR (2) BPH (benign prostatic hyperplasia) Assessment/Plan: continue home medications and monitor intake and output. Code(s): N40.0 - BENIGN PROSTATIC HYPERPLASIA WITHOUT LOWER URINRY TRACT SYMP (3) GERD (gastroesophageal reflux disease) Assessment/Plan: On PPI Code(s): K21.9 - GASTRO-ESOPHAGEAL REFLUX DISEASE WITHOUT ESOPHAGITIS (4) HLD (hyperlipidemia) Assessment/Plan: outpatient follow up. on no home medications Code(s): E78.5 - HYPERLIPIDEMIA, UNSPECIFIED (5) HTN (hypertension) Assessment/Plan: on Cardura BP stable Code(s): I10 - ESSENTIAL (PRIMARY) HYPERTENSION Qualifiers: Hypertension type: essential hypertension Qualified Code(s): I10 - Essential (primary) hypertension (6) Obstructive uropathy Assessment/Plan: tanner placed for retention urology consulted bladder/kidney u/s reviewed scrotal u/s reviewed Code(s): N13.9 - OBSTRUCTIVE AND REFLUX UROPATHY, UNSPECIFIED (7) ANNY (acute kidney injury) Assessment/Plan: renal dose medications renal consulted follow daily labs Code(s): N17.9 - ACUTE KIDNEY FAILURE, UNSPECIFIED (8) DVT prophylaxis Assessment/Plan: SCDs Code(s): Z29.9 - ENCOUNTER FOR PROPHYLACTIC MEASURES, UNSPECIFIED Visit type - Emergency Visit Emergency Visit: Yes ED Registration Date: 07/17/20 Care time: The patient presented to the Emergency Department on the above date and was hospitalized for further evaluation of their emergent condition. - New Patient This patient is new to me today: No - Critical Care Critical Care patient: No - Discharge Referral Referred to [facility] Med P.C.: No - Medication Review Med list reviewed for High Risk Meds patients 65 and older: Yes
[2020-07-20] MEDS ORDERED: ACETAMINOPHEN 325 MG TABLET (FP) PO PRN (14:43)
[2020-07-20] MEDS ORDERED: MORPHINE SULFATE 2 MG/ML VIAL IVPUSH PRN (14:44)
[2020-07-20 15:31] LABS: EPI CELLS 3 /uL (0-25.1); HYALINE CASTS 0 /uL (0-3.1); URINE APPEARANCE CLEAR; URINE BACTERIA 3 /uL (0-1359); URINE BILIRUBIN NEGATIVE (NEGATIVE); URINE COLOR YELLOW; URINE GLUCOSE (UA) NEGATIVE (NEGATIVE); URINE KETONE NEGATIVE (NEGATIVE); URINE LEUK ESTERASE NEGATIVE (NEGATIVE); URINE NITRITE NEGATIVE (NEGATIVE); URINE PROTEIN NEGATIVE (NEGATIVE); URINE RBC 40 /uL (0-23.9); URINE UROBILINOGEN 0.2 mg/dL (0.2-1.0); URINE WBC 5 /uL (0-25.8)
--- NOTE | 2020-07-20 16:58 | PN ---
Progress Note, Physician History of Present Illness: 74 yo male h/o HLD, GERD, BPH. HTN presented with incarcerated right inguinal hernia s/p open repair right inguinal hernia repair, small bowel resection w/ primary anastamosis now complaints of incisional discomfort. He denies chest pain, dyspnea, palpitations, near or true syncope, orthopnea, PND, LE edema or change in exercise capacity. - Current Medication List Current Medications: Active Medications Acetaminophen (Tylenol -) 650 mg PO Q6H PRN PRN Reason: PAIN LEVEL 4 - 6 Benzocaine/Menthol (Cepacol Lozenge -) 1 each MM PRN PRN PRN Reason: SORE THROAT Last Admin: 07/20/20 10:10 Dose: 1 each Documented by: Cholecalciferol (Vitamin D3 -) 1,000 unit PO DAILY [facility] Last Admin: 07/20/20 10:11 Dose: 1,000 unit Documented by: Cyanocobalamin (Vitamin B12 -) 1,000 mcg PO DAILY [facility] Last Admin: 07/20/20 10:10 Dose: 1,000 mcg Documented by: Doxazosin Mesylate (Cardura -) 2 mg PO BID [facility] Last Admin: 07/20/20 10:11 Dose: 2 mg Documented by: Dutasteride (Avodart -) 0.5 mg PO DAILY [facility] Last Admin: 07/20/20 10:11 Dose: 0.5 mg Documented by: Famotidine (Acid Parts And Service Manager) 10 mg PO DAILY [facility] Last Admin: 07/20/20 10:11 Dose: 10 mg Documented by: Morphine Sulfate (Morphine Sulfate) 0.5 mg IVPUSH Q6H PRN PRN Reason: PAIN LEVEL 7 - 10 Saliva Substitute (Mouthkote Solution) 1 applic MM TID [facility] Last Admin: 07/20/20 14:56 Dose: 1 applic Documented by: - Objective Vital Signs: Vital Signs Temperature 97.7 F 07/20/20 14:00 Pulse Rate 76 07/20/20 14:00 Respiratory Rate 20 07/20/20 14:00 Blood Pressure 127/77 07/20/20 14:00 O2 Sat by Pulse Oximetry (%) 95 07/20/20 14:00 Eyes: Yes: WNL, Conjunctiva Clear, EOM Intact HENT: Yes: WNL, Atraumatic, Normocephalic Neck: Yes: WNL, Supple, Trachea Midline Cardiovascular: Yes: WNL, Regular Rate and Rhythm Respiratory: Yes: WNL, Regular, CTA Bilaterally Genitourinary: Yes: WNL Musculoskeletal: Yes: WNL Extremities: Yes: WNL Edema: No Integumentary: Yes: WNL Neurological: Yes: WNL, Alert, Oriented ...Motor Strength: WNL Psychiatric: Yes: WNL Labs: CBC, BMP 07/20/20 08:03 07/20/20 08:03 INR, PTT INR 1.01 (0.83-1.09) 07/17/20 11:45 Assessment/Plan Problem List - Problems (1) S/P inguinal hernia repair Code(s): Z98.890 - OTHER SPECIFIED POSTPROCEDURAL STATES; Z87.19 - PERSONAL HISTORY OF OTHER DISEASES OF THE DIGESTIVE SYSTEM (2) BPH (benign prostatic hyperplasia) Code(s): N40.0 - BENIGN PROSTATIC HYPERPLASIA WITHOUT LOWER URINRY TRACT SYMP (3) GERD (gastroesophageal reflux disease) Code(s): K21.9 - GASTRO-ESOPHAGEAL REFLUX DISEASE WITHOUT ESOPHAGITIS (4) HLD (hyperlipidemia) Code(s): E78.5 - HYPERLIPIDEMIA, UNSPECIFIED (5) HTN (hypertension) Code(s): I10 - ESSENTIAL (PRIMARY) HYPERTENSION Qualifiers: Hypertension type: essential hypertension Qualified Code(s): I10 - Essential (primary) hypertension (6) Incarcerated right inguinal hernia Code(s): K40.30 - UNIL INGUINAL HERNIA, W OBST, W/O GANGR, NOT SPCF RECUR Assessment/Plan 1. POD#3 Open repair right inguinal hernia repair, small bowel resection w/ primary anastamosis, stable CV damon 2. ANNY 3. BPH 4. Hyperlipidemia 5. GERD P:1. Resume home meds once able to tolerate oral intake, DVT prophylaxis 2. Awaiting return of bowel function, judicious hydration with monitor renal re covery 3. Stable CV-damon, has f/u with outside oil field laborer Coverage for dr. Adrian
[2020-07-21] MEDS: LYTES/YERBA SANTA 60 ML SPRAY MM SCH ×2 (05:59→13:34)
[2020-07-21 08:01] LABS: BASO % 0.4 % (0-2.0); EOS % 4.2 % (0-4.5); HEMATOCRIT 39.9 % (35.4-49); HEMOGLOBIN 13.8 GM/dL (11.7-16.9); LYMPH % 9.8 % (8-40); MCH 31.2 pg (25.7-33.7); MCHC 34.5 g/dl (32.0-35.9); MEAN CELL VOLUME 90.6 fl (80-96); MEAN PLT VOLUME 9.2 fl (7.5-11.1); MONO % 8.2 % (3.8-10.2); NEUT % 77.4 % (42.8-82.8); PLATELET COUNT 100 K/MM3 (134-434); RDW 14.2 % (11.9-15.9); WHITE BLOOD COUNT 5.2 K/mm3 (4.0-10.0)
[2020-07-21 08:21] LABS: POTASSIUM 3.4 mmol/L (3.5-5.1)
[2020-07-21 08:23] LABS: ALBUMIN 2.7 g/dl (3.4-5.0); BLOOD UREA NITROGEN 25.9 mg/dL (7-18); CALCIUM 8.2 mg/dL (8.5-10.1)
[2020-07-21 08:24] LABS: MAGNESIUM 2.1 mg/dL (1.8-2.4)
[2020-07-21 08:26] LABS: CREATININE 1.3 mg/dL (0.55-1.3)
[2020-07-21 08:28] LABS: BILIRUBIN,TOTAL 1.4 mg/dL (0.2-1); TOT PROT 5.7 g/dl (6.4-8.2)
--- NOTE | 2020-07-21 08:38 | OP ---
DATE OF OPERATION: 07/17/2020 PREOPERATIVE DIAGNOSIS: Incarcerated right inguinal hernia. POSTOPERATIVE DIAGNOSIS: Strangulated right inguinal hernia. PROCEDURE: Repair of strangulated right inguinal hernia and small-bowel resection. SURGEON: Ritesh Machuca MD METAL BONDING PRESS OPERATOR: Joe Pritchard PA-C ANESTHESIA: General. OPERATIVE FINDINGS: There was a strangulated indirect right inguinal hernia. Contained within the sac was a loop of nonviable small bowel. The defect at the internal ring was extremely tight. The rest of the findings were essentially unremarkable. PROCEDURE: The patient was placed on the operating table in the supine position and, after the induction of general anesthesia, the patient's abdomen was prepped with ChloraPrep and draped in sterile fashion. A timeout was taken and then a transverse right groin incision was made using a scalpel. This was taken down through subcutaneous tissue and Mitch's fascia until the external oblique fascia was identified. The external oblique fascia was then opened in the direction of its fibers proximally and then distally through the external ring. At this time the hernia was delivered from scrotum up until the inguinal canal. The sac was opened and the previously noted findings were observed. The defect at the internal ring was enlarged using electrocautery to allow for manipulation of proximal and distal small bowel and to effect a small-bowel anastomosis. The small bowel was divided proximally and distally using a SERAFIN stapling device after a window had been made in the mesentery. Next, the mesentery of the nonviable small-bowel was divided using the LigaSure device. The specimen was passed off the operative field and sent for pathological examination. A [id number] anastomosis was then carried out by removing a portion of both antimesenteric borders of the proximal and distal small-bowel loops. Next, the SERAFIN stapling device was placed within the bowel lumen and fired to create a [id number] anastomosis. The remaining defect was closed with a TA stapling device. Two 3-0 silk sutures were placed along the anastomosis to relieve tension. The defect in the mesentery was then closed using continuous 2-0 Vicryl. Next, the bowel was returned to the peritoneal cavity. The cord structures and nerve were then elevated at the level of the pubic tubercle and a Wilfredo drain placed around them for retraction and identification purposes. Primary hernia repair was carried out by approximating the conjoint tendon to the shelving edge of the inguinal ligament using multiple interrupted 2-0 Prolene sutures. Adequate space was left at the internal ring for passage of the cord structures. Copious irrigation was carried out and hemostasis was secured with electrocautery. Next, the cord structures and nerve were returned to their normal anatomic position and the external oblique fascia closed using continuous 2-0 Vicryl recreating the external ring. Mitch's fascia was reapproximated with interrupted 2-0 Vicryl and the skin edges with surgical shine. Dry sterile dressings were placed and the procedure terminated at this point and the patient aroused from general anesthesia and transferred to the postanesthesia care unit in stable condition awake and alert. ESTIMATED BLOOD LOSS: 30 mL REPLACEMENTS: Crystalloid. DRAINS: None. SPECIMEN: Nonviable small-bowel to Pathology. I, Ritesh Machuca, was physically present in the operating room from the time the patient was placed on the operating table until he was transferred to the postanesthesia care unit in my accompaniment. MD GIORGI Gonzalez/[id number] MTDD
[2020-07-21] MEDS ORDERED: POTASSIUM CHLORIDE TABS 20 MEQ TABLET.ER (FP) PO ONE (09:15)
--- NOTE | 2020-07-21 09:29 | CON.GU ---
Consult Consult Specialty:: Reason for Consultation:: urinary retention - History of Present Illness Chief Complaint: R groin pain History of Present Illness: 74 year old male with history of hyperlipidema, benign prostatic hyperplasia, presents with complaint of right groin pain. He endorses playing Golf yesterday without any pain, however this morning he noticed sharp pain in his right groin after taking a shower. The pain progressed and worsened and was associated with one episode of non bloody non bilious vomiting. He denies any trauma to the areaThe pain progressed prompting presentation to Emergency Department. He denies subjective fevers, chills, shortness of breath, chest pain, palpitations, abdominal pain. Pt underwent repair of strangulated RIH w small bowel resection 07/17/20 w post op urinary retention and rising creatinine despite doxazosin and avodart requiring intermittent st cath for 600 ml residual urine volumesand cons req. - History Source History Provided By: Patient, Medical Record Limitations to Obtaining History: No Limitations - Past Medical History Renal/: Yes: BPH - Smoking History Smoking history: Former smoker Have you smoked in the past 12 months: No If you are a former smoker, when did you quit?: 52 years ago Home Medications - Allergies Allergies/Adverse Reactions: Allergies Allergy/AdvReac Type Severity Reaction Status Date / Time No Known Allergies Allergy Verified 07/17/20 10:57 - Home Medications Home Medications: Ambulatory Orders Doxazosin Mesylate 07/18/20 Dutasteride 07/18/20 Pepcid 07/18/20 Vitamin B12 07/18/20 Vitamin D - 07/18/20 Review of Systems - Review of Systems Genitourinary: reports: Other Physical Exam- Vital Signs: Vital Signs Temperature 98.7 F 07/21/20 06:00 Pulse Rate 72 07/21/20 06:00 Respiratory Rate 20 07/21/20 06:00 Blood Pressure 121/75 07/21/20 06:00 O2 Sat by Pulse Oximetry (%) 94 L 07/21/20 06:00 Gastrointestinal: Yes: Soft Renal/: Yes: Tanner Present. No: Bladder Distention, CVA Tenderness - Left, CVA Tenderness - Right, Hematuria Kidneys: Yes: WNL. No: Flank Pain Left, FLank Pain Right Testicles: Yes: WNL Scrotum: Yes: WNL Penis: Yes: WNL Prostate Exam: Yes: Swollen Labs: CBC, BMP 07/21/20 06:45 07/21/20 06:45 Imaging - Results Cat Scan: Report Reviewed Ultrasound: Report Reviewed Problem List - Problems (1) Urinary retention Assessment/Plan: ok for disch w tanner cath Code(s): R33.9 - RETENTION OF URINE, UNSPECIFIED (2) ANNY (acute kidney injury) Assessment/Plan: trend creat, improved today Code(s): N17.9 - ACUTE KIDNEY FAILURE, UNSPECIFIED (3) BPH (benign prostatic hyperplasia) Assessment/Plan: cont doxazosin and avodart, f/u after disch for cystoscopy, trus, uroflow, PVR. He may need TURP Code(s): N40.0 - BENIGN PROSTATIC HYPERPLASIA WITHOUT LOWER URINRY TRACT SYMP (4) Renal cyst Code(s): N28.1 - CYST OF KIDNEY, ACQUIRED (5) S/P inguinal hernia repair Code(s): Z98.890 - OTHER SPECIFIED POSTPROCEDURAL STATES; Z87.19 - PERSONAL HISTORY OF OTHER DISEASES OF THE DIGESTIVE SYSTEM
--- NOTE | 2020-07-21 09:43 | PN ---
Progress Note, Physician History of Present Illness: 74 yo male h/o HLD, GERD, BPH. HTN presented with incarcerated right inguinal hernia POD#4 open repair right inguinal hernia repair, small bowel resection w/ primary anastamosis now complaints of incisional discomfort. He denies chest pain, dyspnea, palpitations, near or true syncope, orthopnea, PND, LE edema or change in exercise capacity. ambulating in hallway, tolerating full diet, pass ing flatus. - Current Medication List Current Medications: Active Medications Acetaminophen (Tylenol -) 650 mg PO Q6H PRN PRN Reason: PAIN LEVEL 4 - 6 Last Admin: 07/20/20 18:24 Dose: 650 mg Documented by: Benzocaine/Menthol (Cepacol Lozenge -) 1 each MM PRN PRN PRN Reason: SORE THROAT Last Admin: 07/20/20 20:39 Dose: 1 each Documented by: Cholecalciferol (Vitamin D3 -) 1,000 unit PO DAILY [facility] Last Admin: 07/20/20 10:11 Dose: 1,000 unit Documented by: Cyanocobalamin (Vitamin B12 -) 1,000 mcg PO DAILY [facility] Last Admin: 07/20/20 10:10 Dose: 1,000 mcg Documented by: Doxazosin Mesylate (Cardura -) 2 mg PO BID [facility] Last Admin: 07/20/20 23:05 Dose: 2 mg Documented by: Dutasteride (Avodart -) 0.5 mg PO DAILY [facility] Last Admin: 07/20/20 10:11 Dose: 0.5 mg Documented by: Famotidine (Acid Residential Recycle Driver) 10 mg PO DAILY [facility] Last Admin: 07/20/20 10:11 Dose: 10 mg Documented by: Morphine Sulfate (Morphine Sulfate) 0.5 mg IVPUSH Q6H PRN PRN Reason: PAIN LEVEL 7 - 10 Saliva Substitute (Mouthkote Solution) 1 applic MM TID [facility] Last Admin: 07/21/20 05:59 Dose: 1 applic Documented by: - Objective Vital Signs: Vital Signs Temperature 98.7 F 07/21/20 06:00 Pulse Rate 72 07/21/20 06:00 Respiratory Rate 20 07/21/20 06:00 Blood Pressure 121/75 07/21/20 06:00 O2 Sat by Pulse Oximetry (%) 94 L 07/21/20 06:00 Constitutional: Yes: No Distress, Calm Neck: Yes: Supple Cardiovascular: Yes: Regular Rate and Rhythm Respiratory: Yes: Regular, CTA Bilaterally Gastrointestinal: Yes: Normal Bowel Sounds, Soft Edema: No Labs: CBC, BMP 07/21/20 06:45 07/21/20 06:45 INR, PTT INR 1.01 (0.83-1.09) 07/17/20 11:45 - ....Imaging Ultrasound: Report Reviewed (Large left renal cysts, no hydro) Problem List - Problems (1) S/P inguinal hernia repair Code(s): Z98.890 - OTHER SPECIFIED POSTPROCEDURAL STATES; Z87.19 - PERSONAL HISTORY OF OTHER DISEASES OF THE DIGESTIVE SYSTEM (2) BPH (benign prostatic hyperplasia) Code(s): N40.0 - BENIGN PROSTATIC HYPERPLASIA WITHOUT LOWER URINRY TRACT SYMP (3) GERD (gastroesophageal reflux disease) Code(s): K21.9 - GASTRO-ESOPHAGEAL REFLUX DISEASE WITHOUT ESOPHAGITIS (4) HLD (hyperlipidemia) Code(s): E78.5 - HYPERLIPIDEMIA, UNSPECIFIED (5) HTN (hypertension) Code(s): I10 - ESSENTIAL (PRIMARY) HYPERTENSION Qualifiers: Hypertension type: essential hypertension Qualified Code(s): I10 - Essential (primary) hypertension (6) Incarcerated right inguinal hernia Code(s): K40.30 - UNIL INGUINAL HERNIA, W OBST, W/O GANGR, NOT SPCF RECUR Assessment/Plan 1. POD#4 Open repair right inguinal hernia repair, small bowel resection w/ primary anastamosis, stable CV damon 2. ANNY (obstructive) improving 3. BPH with urinary retention 4. Hyperlipidemia 5. GERD P:1. Resumed home meds as able to tolerate oral intake, DVT prophylaxis 2. Monitoring renal recovery, replete K, tanner 3. Stable CV-damon, has f/u with outside electrical project engineer
--- NOTE | 2020-07-21 09:49 | PN ---
Progress Note (short form) - Note Progress Note: SURGERY 74yo M s/p strangulated Right inguinal hernia repair with small bowel resection. Pt seen and examined at bedside. Pt states he is passing flatus, but no BM. Pt tolerating clears and ambulating well. Pt denies fever, chills, n/v. Last Vital Signs Temp Pulse Resp BP Pulse Ox 98.7 F 72 20 121/75 94 L 07/21/20 06:00 07/21/20 06:00 07/21/20 06:00 07/21/20 06:00 07/21/20 06:00 CBC, BMP 07/21/20 06:45 07/21/20 06:45 PE: Gen: A&O X3 Resp: breathing comfortably Abd: soft, nondistended, tenderness over Right inguinal incision, incison clean with no erythema or discharge. <Greg Rob - Last Filed: 07/21/20 09:25> - Note Progress Note: Attending Surgeon FC was replaced for urinary retention; he was seen by Urology; surgically stable for outpatient office f/u. Ritesh Machuca MD FACS <Ritesh Machuca - Last Filed: 07/21/20 11:40> Problem List - Problems (1) Incarcerated right inguinal hernia Assessment/Plan: Plan -pt appears to be doing well will adv diet. -pt is cleared for discharge from surgery standpoint if he tolerates his diet. -pt should follow up with Dr. Machuca in the office in 1 week. Pt discussed with Dr. Machuca who agrees with plan Code(s): K40.30 - UNIL INGUINAL HERNIA, W OBST, W/O GANGR, NOT SPCF RECUR <Greg Rob - Last Filed: 07/21/20 09:25>
[2020-07-21] MEDS ORDERED: PT OWN MED DRAWER 7, Y5N ONE (10:46)
[2020-07-21] MEDS: CHOLECALCIFEROL (VIT D3) 1,000 UNIT (25 MCG) TABLET PO SCH (10:56)
[2020-07-21] MEDS: DOXAZOSIN MESYLATE 2 MG TABLET PO SCH (10:56)
[2020-07-21] MEDS: CYANOCOBALAMIN 1,000 MCG TABLET (FP) PO SCH (10:56)
[2020-07-21] MEDS: FAMOTIDINE 10 MG TABLET PO SCH (10:57)
[2020-07-21] MEDS: DUTASTERIDE 0.5 MG CAP (FP) PO SCH (10:57)
[2020-07-21 13:30] VITALS: BP 140/84; PULSE 85; TEMP 98
--- NOTE | 2020-07-21 14:14 | DS ---
Physical Exam: SUBJECTIVE: Patient seen and examined OBJECTIVE: Patient is a 74 year old male with history of hyperlipidema, benign prostatic hyperplasia, who presented to the ED on 07/17/2020 with complaints of right groin pain. An abdominal ct scan showed right inguinal hernia containing a small bowel loop and fluid incarceration of this loop is suspected. He is s/p POD #3 Open repair right inguinal hernia repair, small bowel resection w/ primary anastamosis. He has tolerated a regular diet and has been cleared by surgery for d/c home. Patient developed elevated creatinine on 07/20/2020 @ 2.9 and noted to have apx 600 cc of retention. A lopez was placed and urology consulted. kidney/bladder us reviewed: large renal cyst, pt unable to void. scrotum u/s: mild hypervascularity of both testes, small bilateral hydroceles patient to follow up with Urology and Nephrology as an outpatient. . Vital Signs Period Temp Pulse Resp BP Sys/Taylor Pulse Ox Last 24 Hr 97.8 F-98.7 F 72-85 20-20 121-140/75-84 94-98 PHYSICAL EXAM GENERAL: The patient is awake, alert, and fully oriented, in no acute distress. HEAD: Normal with no signs of trauma. EYES: PERRL, extraocular movements intact, sclera anicteric, conjunctiva clear. No ptosis. ENT: Ears normal, nares patent, oropharynx clear without exudates, moist mucous membranes. NECK: Trachea midline, full range of motion, supple. LUNGS: Breath sounds equal, clear to auscultation bilaterally, no wheezes HEART: Regular rate and rhythm ABDOMEN: Soft, nontender, nondistended, normoactive bowel sounds - right groin shine intact EXTREMITIES: no edema. NEUROLOGICAL: Normal speech, gait steady LABS Laboratory Results - last 24 hr 07/20/20 07/21/20 07/21/20 14:55 06:45 06:45 WBC 5.2 RBC 4.40 Hgb 13.8 Hct 39.9 MCV 90.6 MCH 31.2 MCHC 34.5 RDW 14.2 Plt Count 100 L MPV 9.2 Absolute Neuts (auto) 4.0 Neutrophils % 77.4 Lymphocytes % 9.8 D Monocytes % 8.2 Eosinophils % 4.2 D Basophils % 0.4 Nucleated RBC % 0 Sodium 145 Potassium 3.4 L Chloride 111 H Carbon Dioxide 26 Anion Gap 7 L BUN 25.9 H Creatinine 1.3 Est GFR (CKD-EPI)AfAm 62.30 Est GFR (CKD-EPI)NonAf 53.75 Random Glucose 94 Calcium 8.2 L Magnesium 2.1 Total Bilirubin 1.4 H AST 14 L ALT 15 Alkaline Phosphatase 64 Total Protein 5.7 L Albumin 2.7 L Urine Color Yellow Urine Appearance Clear Urine pH 5.0 Ur Specific [place] 1.011 Urine Protein Negative Urine Glucose (UA) Negative Urine Ketones Negative Urine Blood 2+ H Urine Nitrite Negative Urine Bilirubin Negative Urine Urobilinogen 0.2 Ur Leukocyte Esterase Negative Urine WBC (Auto) 5 Urine RBC (Auto) 40 Urine Casts (Auto) 0 U Epithel Cells (Auto) 3 Urine Bacteria (Auto) 3 HOSPITAL COURSE: Date of Admission:07/17/20 Date of Discharge: 07/21/20 Minutes to complete discharge: 60 Discharge Summary Problems reviewed: Yes Reason For Visit: INCARCERATED RT INGUINAL HERNIA Current Active Problems ANNY (acute kidney injury) (Acute) BPH (benign prostatic hyperplasia) (Acute) DVT prophylaxis (Acute) GERD (gastroesophageal reflux disease) (Acute) HLD (hyperlipidemia) (Acute) HTN (hypertension) (Acute) Incarcerated right inguinal hernia (Acute) Obstructive uropathy (Acute) Renal cyst (Acute) S/P inguinal hernia repair (Acute) Urinary retention (Acute) Condition: Improved - Instructions Diet, Activity, Other Instructions: Dr. Machuca Discharge Instructions Dear TONY GALVAN, Post Operative Instructions Physical activity Resume your normal everyday activity as tolerated no heavy lifting or exercise until seen by your surgeon. You may walk unlimited amounts of and climb stairs. You may resume driving the car when you feel safe and comfortable behind the wheel. Wound care You have a liquid bandage over your incisions. This will come off slowly on its own over the next few weeks. Please avoid picking at it if you notice it flaking. You may shower starting tomorrow. When showering allow soap and water to run over the incision. Do not scrub, pat dry after showering. Diet There are no dietary restrictions. Eat healthy, high-fiber foods. Drink 6 to 8 glasses of liquid each day. This will assist in keeping your bowels are regular. Pain management You may take Tylenol or acetaminophen or Ibuprofen (for example, Motrin, Advil etc.) Any pain prescription medication ordered should be taken as prescribed for moderate to severe pain. Call Dr. Machuca for any of the following: Severe pain not relieved by medication Fever of 101 or higher Excessive bleeding or drainage on dressing Inability to urinate Call the office at [phone] for a post operative appointment in 7 - 10 days. [employer] We will be sending you home with a leg bag that will collect your urine. Please follow up with Dr. Al by calling his office for a follow up appointment. He would like to see you on or next week. Please monitor how much urine you have in your leg bag daily and record the information for Dr. Al. Thank you. Referrals: Ritesh Machuca MD [Staff Physician] - (Dr. Machuca's office will contact you to schedule your follow up appointment.) Dima Al MD [Staff Physician] - 07/31/20 11:30 am Roberto Vincent MD [Staff Physician] - Disposition: HOME - Home Medications Comprehensive Discharge Medication List: Ambulatory Orders Doxazosin Mesylate 07/18/20 Dutasteride 07/18/20 Pepcid 07/18/20 Vitamin B12 07/18/20 Vitamin D - 07/18/20 Problem List - Problems (1) Incarcerated right inguinal hernia Code(s): K40.30 - UNIL INGUINAL HERNIA, W OBST, W/O GANGR, NOT SPCF RECUR (2) BPH (benign prostatic hyperplasia) Code(s): N40.0 - BENIGN PROSTATIC HYPERPLASIA WITHOUT LOWER URINRY TRACT SYMP (3) GERD (gastroesophageal reflux disease) Code(s): K21.9 - GASTRO-ESOPHAGEAL REFLUX DISEASE WITHOUT ESOPHAGITIS (4) HLD (hyperlipidemia) Code(s): E78.5 - HYPERLIPIDEMIA, UNSPECIFIED (5) HTN (hypertension) Code(s): I10 - ESSENTIAL (PRIMARY) HYPERTENSION Qualifiers: Hypertension type: essential hypertension Qualified Code(s): I10 - Essential (primary) hypertension (6) Obstructive uropathy Code(s): N13.9 - OBSTRUCTIVE AND REFLUX UROPATHY, UNSPECIFIED (7) ANNY (acute kidney injury) Code(s): N17.9 - ACUTE KIDNEY FAILURE, UNSPECIFIED (8) DVT prophylaxis Code(s): Z29.9 - ENCOUNTER FOR PROPHYLACTIC MEASURES, UNSPECIFIED This patient is new to me today: No Emergency Visit: Yes ED Registration Date: 07/17/20 Care time: The patient presented to the Emergency Department on the above date and was hospitalized for further evaluation of their emergent condition. Critical Care patient: No - Discharge Referral Referred to [facility] Med [facility] No
--- NOTE | 2020-07-21 14:32 | PN ---
Teaching Attending Note Name of Resident: Kristian Flores ATTENDING PHYSICIAN STATEMENT I saw and evaluated the patient. I reviewed the resident's note and discussed the case with the resident. I agree with the resident's findings and plan as documented. SUBJECTIVE: Patient seen and examined at bedside, admitted for suspected R inguinal hernia, Surgery notified. VSS. OBJECTIVE: GENERAL: The patient is awake, alert, and fully oriented, in no acute distress. HEAD: Normocephalic, atraumatic. EYES: PERRL, extraocular movements intact, sclera anicteric, conjunctiva clear. ENT: Oropharynx clear, without erythema or exudates. Moist mucous membranes. NECK: Trachea midline, full range of motion. Supple without lymphadenopathy. LUNGS: Breath sounds equal, clear to auscultation bilaterally. No wheezes, no crackles. No accessory muscle use. HEART: Regular rate and rhythm. S1, S2 without murmur, rub or gallop. ABDOMEN: Soft, nondistended, nontender to light and deep palpation x4 quadrants. No rebound tenderness, no guarding. Normoactive bowel sounds x4 quadrants. No hepatosplenomegaly, no masses appreciated. GENITOURINARY: Right sided inguinal hernia palpated, tense, tender to palpation. Non-reducible. Negative bowel sounds auscultated over hernia. EXTREMITIES: 2+ radial, dorsalis pedis pulses bilaterally. Warm, well-perfused. No lower extremity edema bilaterally. NEUROLOGICAL: Cranial nerves II through XII grossly intact. Normal speech. No gross focal deficits. PSYCH: Normal mood, normal affect upon my encounter. SKIN: Warm, dry. ASSESSMENT AND PLAN: 74 M Suspected incarcerated R inguinal hernia HLD BPH Plan: IVF, strict NPO Urgent surgical evaluation for hernia repair Zosyn for abx coverage Opioids PRN for pain control Medicine to follow
--- NOTE | 2020-07-21 16:03 | PATH ---
Surgical Pathology Report Patient Name: TONY GALVAN Med. Rec. #: [id number] /Age/Gender: 1945 (Age: 74) / M Account: [id number] Location: [facility] MED/SURG Taken: 07/17/2020 Received: 07/18/2020 Reported: 07/21/2020 Physicians: MD DAPHNEY Lowry Specimen(s) Received SMALL BOWEL Clinical History Incarcerated right inguinal hernia Final Diagnosis SMALL BOWEL, RESECTION: SEGMENT OF SMALL INTESTINE SHOWING VARYING DEGREE MUCOSAL NECROSIS WITH FOCAL ACUTE INFLAMMATION, MARKED VASCULAR CONGESTION, SUBMUCOSAL EDEMA, AND TRANSMURAL HEMORRHAGE. VIABLE MARGINS WITH FOCAL MUCOSAL NECROSIS AND HEMORRHAGE. Comment: Findings are consistent with ischemic change of the small intestine. Suggest clinical correlation. Electronically Signed Forrest Couch M.D. Gross Description Received in formalin labeled "small bowel," is a 14 cm in length portion of small bowel with 2 stapled mucosal margins and moderate attached adipose tissue. The serosa is nunes-brown with focal dusky discoloration. The mucosa is hemorrhagic. No mucosal masses are identified. Enterprise Engineer sections are submitted in 3 cassettes as follows: 1-2-yuiekvseyqti stapled mucosal margins; 3-food service representative full-thickness section of the bowel. /07/18/2020 saudi07/18/2020
--- NOTE | 2020-07-21 16:20 | CONSULT ---
Consult Consult Specialty:: Nephrology Reason for Consultation:: ANNY - History of Present Illness Chief Complaint: initiall presented with groin pain History of Present Illness: Pt is a 74 year old gentleman with pmhx of hld and bph who presents to the ER with right groin pain. He was found to have a hernia and underwent repair. He developed post op urinary retention. He required a tanner. I was called to evaluate him for ANNY. His renal function is starting to improve. He denies shortness of breath. HE denies fevers or chills. - History Source History Provided By: Patient - Past Medical History Renal/: Yes: BPH - Smoking History Smoking history: Former smoker Have you smoked in the past 12 months: No If you are a former smoker, when did you quit?: 52 years ago Home Medications - Allergies Allergies/Adverse Reactions: Allergies Allergy/AdvReac Type Severity Reaction Status Date / Time No Known Allergies Allergy Verified 07/17/20 10:57 - Home Medications Home Medications: Ambulatory Orders Doxazosin Mesylate 07/18/20 Dutasteride 07/18/20 Pepcid 07/18/20 Vitamin B12 07/18/20 Vitamin D - 07/18/20 Family Medical History Family History: Denies Review of Systems - Review of Systems Constitutional: reports: No Symptoms Eyes: reports: No Symptoms HENT: reports: No Symptoms Neck: reports: No Symptoms Cardiovascular: reports: No Symptoms Respiratory: reports: No Symptoms Gastrointestinal: reports: No Symptoms Genitourinary: reports: Other (tanner) Musculoskeletal: reports: No Symptoms Integumentary: reports: No Symptoms Neurological: reports: No Symptoms Endocrine: reports: No Symptoms Hematology/Lymphatic: reports: No Symptoms Psychiatric: reports: No Symptoms Physical Exam Vital Signs: Vital Signs Temperature 98 F 07/21/20 10:00 Pulse Rate 85 07/21/20 10:00 Respiratory Rate 20 07/21/20 10:00 Blood Pressure 140/84 07/21/20 10:00 O2 Sat by Pulse Oximetry (%) 96 07/21/20 10:00 Constitutional: Yes: Calm Eyes: Yes: Conjunctiva Clear HENT: Yes: Atraumatic Neck: Yes: Supple Cardiovascular: Yes: S1, S2 Respiratory: Yes: CTA Bilaterally Gastrointestinal: Yes: Soft Renal/: Yes: Tanner Present Extremities: Yes: WNL Edema: No Neurological: Yes: Oriented Psychiatric: Yes: Oriented Labs: CBC, BMP 07/21/20 06:45 07/21/20 06:45 Imaging - Results Ultrasound: Report Reviewed (left renal cyst) Problem List - Problems (1) ANNY (acute kidney injury) Code(s): N17.9 - ACUTE KIDNEY FAILURE, UNSPECIFIED (2) BPH (benign prostatic hyperplasia) Code(s): N40.0 - BENIGN PROSTATIC HYPERPLASIA WITHOUT LOWER URINRY TRACT SYMP Assessment/Plan Current Medications Generic Name Dose Route Start Last Admin Trade Name Freq PRN Reason Stop Dose Admin Acetaminophen 650 mg 07/20/20 14:43 07/20/20 18:24 Tylenol - PO 650 mg Q6H PRN Administration PAIN LEVEL 4 - 6 Benzocaine/Menthol 1 each 07/18/20 15:27 07/20/20 20:39 Cepacol Lozenge - MM 1 each PRN PRN Administration SORE THROAT Cholecalciferol 1,000 unit 07/18/20 12:45 07/21/20 10:56 Vitamin D3 - PO 1,000 unit DAILY PRISCILLA Administration Cyanocobalamin 1,000 mcg 07/18/20 12:45 07/21/20 10:56 Vitamin B12 - PO 1,000 mcg DAILY PRISCILLA Administration Doxazosin Mesylate 2 mg 07/18/20 12:45 07/21/20 10:56 Cardura - PO 2 mg BID PRISCILLA Administration Dutasteride 0.5 mg 07/18/20 13:00 07/21/20 10:57 Avodart - PO 0.5 mg DAILY PRISCILLA Administration Famotidine 10 mg 07/18/20 13:00 07/21/20 10:57 Acid Industrial Maintenance Electrician PO 10 mg DAILY PRISCILLA Administration Morphine Sulfate 0.5 mg 07/20/20 14:44 Morphine Sulfate IVPUSH Q6H PRN PAIN LEVEL 7 - 10 Saliva Substitute 1 applic 07/19/20 15:15 07/21/20 13:34 Mouthkote Solution MM 1 applic TID PRISCILLA Administration Impression 1. ANNY 2. urinary obstruction 3. bph 4. renal cyst 5. hernia 6. hypokalemia Plan - renal function improved - replace potassium - urology follow up - avoid nephrotoxins - repeat ua once stable, can be done as outpt
== END 2020-07-21 16:49 | disposition home or self-care (01) | DRG 330 ==
LOC: JER 10:40 → JERBED 13:01 → J8W 20:12
PROVIDERS: ATTEND Nurse Practitioner Family
PROC: 0D180Z8 Bypass Small Intestine to Small Intestine, Open Approach (ICD-10-PCS; 2020-07-17)
PROC: 0YQ50ZZ Repair Right Inguinal Region, Open Approach (ICD-10-PCS; 2020-07-17)
PROC: 0DB80ZZ Excision of Small Intestine, Open Approach (ICD-10-PCS; principal; 2020-07-17 14:00)
DX: K40.30 Unilateral inguinal hernia, with obstruction, without gangrene, not specified as recurrent (principal); N17.9 Acute kidney failure, unspecified; K21.9 Gastro-esophageal reflux disease without esophagitis; N40.0 Benign prostatic hyperplasia without lower urinary tract symptoms; E78.5 Hyperlipidemia, unspecified; R33.9 Retention of urine, unspecified; N28.1 Cyst of kidney, acquired; N43.3 Hydrocele, unspecified; N13.9 Obstructive and reflux uropathy, unspecified; E80.6 Other disorders of bilirubin metabolism
CPT/HCPCS: 36415; 74176-TC; 76775-TC; 76856-TC; 76870-TC; 80048; 80053; 81003; 82248; 82436; 82565; 83605; 83690; 83735; 84100; 84133; 84300; 85025; 85027; 85610; 85730; 86850; 86900; 86901; 87086; 88307-TC; 93005; 93010; 94010; 94760; 97116-GP; 97162-GP; 99285-25; C9803; J0131; U0003